=== PATIENT | female | born 1990 | race American Indian/Alaskan Native ===

== ENCOUNTER 2016-08-29 05:13 | Emergency (ER) | payer OTHER ==
[2016-08-29 05:33] VITALS: BP 124/88
== END 2016-08-29 05:25 | disposition left against medical advice (07) ==
LOC: ED 05:13
DX: R10.9 Unspecified abdominal pain (principal); Z53.21 Procedure and treatment not carried out due to patient leaving prior to being seen by health care provider

== ENCOUNTER 2018-01-20 05:12 | Emergency (ER) | payer MEDICAID ==
[2018-01-20 05:21] VITALS: BP 126/91
[2018-01-20] MEDS ORDERED: TYLENOL #3 PO ONE (08:35)
--- NOTE | 2018-01-20 08:35 | Emergency Department Report ---
ED Female HPI - General Chief complaint: Abdominal Pain Stated complaint: ABD PAIN Time Seen by Provider: 01/20/18 08:18 Source: patient Mode of arrival: Ambulatory Limitations: No Limitations - History of Present Illness Initial comments: 27-year-old female past medical history station will diabetes, painful periods currently on control with implant presents with complaint of one week of pelvic cramping and discomfort. Patient states that her last period started on 01/13. States that she has had painful menstrual cramps. Denies dysuria or increased urinary frequency. Denies fevers chills nausea or vomiting. Awake alert and oriented 3. Denies any current vaginal discharge. Is currently sexually active. MD Complaint: pelvic pain - Related Data Previous Rx's Medication Instructions Recorded Last Taken Type HYDROcodone/APAP 5-325 [[place] 1 each PO Q6HR PRN #30 tablet 05/21/17 Unknown Rx 5/325] Ibuprofen [Motrin] 800 mg PO Q8HR PRN #30 tablet 05/21/17 Unknown Rx Naproxen 500 mg PO BID PRN #20 tablet 01/20/18 Unknown Rx Allergies Allergy/AdvReac Type Severity Reaction Status Date / Time lactose Allergy Diarrhea Verified 08/29/16 05:34 tomato Allergy Unknown Verified 08/29/16 05:34 ED Review of Systems ROS: Stated complaint: ABD PAIN Other details as noted in HPI Constitutional: denies: chills, fever Eyes: denies: eye pain, eye discharge, vision change ENT: denies: ear pain, throat pain Respiratory: denies: cough, shortness of breath, wheezing Cardiovascular: denies: chest pain, palpitations Endocrine: no symptoms reported Gastrointestinal: denies: abdominal pain, nausea, diarrhea Genitourinary: abnormal menses (painful). denies: urgency, dysuria, discharge Musculoskeletal: denies: back pain, joint swelling, arthralgia Skin: denies: rash, lesions Neurological: denies: headache, weakness, paresthesias Psychiatric: denies: anxiety, depression Hematological/Lymphatic: denies: easy bleeding, easy bruising ED Past Medical Hx - Past Medical History Previous Medical History?: Yes Hx Hypertension: No Hx Congestive Heart Failure: No Hx Diabetes: Yes (GDMM this ) Hx Deep Vein Thrombosis: No Hx Renal Disease: No Hx Sickle Cell Disease: No Hx Seizures: No Hx Kidney Stones: Yes Hx Asthma: No Hx COPD: No Hx HIV: No Additional medical history: right hydronephrosis - Surgical History Past Surgical History?: Yes Additional Surgical History: wisdom teeth. deviated septum - Social History Smoking Status: Never Smoker Substance Use Type: Alcohol, Marijuana - Medications Home Medications: Home Medications Medication Instructions Recorded Confirmed Last Taken Type HYDROcodone/APAP 5-325 [[place] 1 each PO Q6HR PRN #30 tablet 05/21/17 Unknown Rx 5/325] Ibuprofen [Motrin] 800 mg PO Q8HR PRN #30 tablet 05/21/17 Unknown Rx Naproxen 500 mg PO BID PRN #20 tablet 01/20/18 Unknown Rx ED Physical Exam - General Limitations: No Limitations General appearance: alert, in no apparent distress - Head Head exam: Present: atraumatic, normocephalic - Eye Eye exam: Present: normal appearance, PERRL, EOMI - ENT ENT exam: Present: mucous membranes moist - Neck Neck exam: Present: normal inspection - Respiratory Respiratory exam: Present: normal lung sounds bilaterally. Absent: respiratory distress - Cardiovascular Cardiovascular Exam: Present: regular rate, normal rhythm. Absent: systolic murmur, diastolic murmur, rubs, gallop - GI/Abdominal GI/Abdominal exam: Present: soft (abdomne soft, nontender, nondistended, negative iliospoas, negative murphys sign, negative rovsings, no tenderness at mcburneys point), normal bowel sounds - External exam: Present: normal external exam Speculum exam: Present: normal speculum exam Bi-manual exam: Present: normal bi-manual exam - Extremities Exam Extremities exam: Present: normal inspection - Back Exam Back exam: Present: normal inspection - Neurological Exam Neurological exam: Present: alert, oriented X3, CN II-XII intact, normal gait - Psychiatric Psychiatric exam: Present: normal affect, normal mood - Skin Skin exam: Present: warm, dry, intact, normal color. Absent: rash ED Course Vital Signs 01/20/18 01/20/18 05:14 09:51 Temperature 98.2 F Pulse Rate 85 Respiratory 12 18 Rate Blood Pressure 126/91 O2 Sat by Pulse 98 Oximetry ED Medical Decision Making - Medical Decision Making A/P: Dysmenorrhea 1-UA UNREMARKABLE, URINALYSIS UNREMARKABLE, PATIENT NOT 2 f/u with [facility] 3-naproxen when necessary 4-she states she has a follow-up with [facility] on January 25. It is possible that her intermittent cramps in dysmenorrhea and bleeding secondary to her current implanted control Critical care attestation.: If time is entered above; I have spent that time in minutes in the direct care of this critically ill patient, excluding procedure time. ED Disposition Clinical Impression: Menstrual cramps Disposition: TO HOME OR SELFCARE Is pt being admited?: No Does the pt Need Aspirin: No Condition: Stable Instructions: Menstruation (ED), Dysmenorrhea (ED) Prescriptions: Naproxen 500 mg PO BID PRN #20 tablet PRN Reason: Pain Referrals: [facility] [Provider Group] - 3-5 Days Forms: Work/School Release Form(ED) Time of Disposition: 10:29
[2018-01-20 08:41] LABS: Bilirubin,Urine NEG (Negative); Blood,Urine LG (Negative); Color,Urine Yellow (Yellow); Mucus,Urine 1+ /HPF; Urobilinogen,Urine < 2.0 mg/dL (<2.0)
[2018-01-20 08:43] LABS: RBC,Urine > 182.0 /HPF (0.0-6.0)
[2018-01-20 08:44] LABS: HCG Qualitative,Urine Negative (Negative)
--- NOTE | 2018-01-20 10:24 | Ultrasound Report ---
ULTRASOUND PELVIS DUPLEX DOPPLER COMPLETE ULTRASOUND TRANSVAGINAL HISTORY: Pelvic pain. COMPARISON: None. TECHNIQUE: Transabdominal and transvaginal ultrasound with color doppler interrogation. FINDINGS: Uterus: The uterus is anteverted. The uterus measures 9 x 4 x 6 cm. No uterine fibroids are detected. Trace fluid in an otherwise normal cervix is noted. Endometrium: The endometrial stripe measures 4 mm. No evidence for mass or fluid. Right ovary: 3.9 x 2.0 x 2.8 cm. No focal abnormality. Left ovary: 4.4 x 1.8 x 2.8 cm. No focal abnormality. No pelvic fluid or mass is identified. Spectral waveforms demonstrate arterial flow to both ovaries. IMPRESSION: Unremarkable transabdominal and transvaginal pelvic ultrasounds.
== END 2018-01-20 10:15 | disposition home or self-care (01) ==
LOC: ED 05:12
DX: N94.4 Primary dysmenorrhea (principal); F12.10 Cannabis abuse, uncomplicated; Z79.899 Other long term (current) drug therapy; Z91.018 Allergy to other foods
CPT/HCPCS: 76830; 81001; 81025; 87210; 87591; 93975

== ENCOUNTER 2019-05-28 19:41 | Emergency (ER) | payer MEDICAID ==
[2019-05-28 20:15] VITALS: BP 137/88
--- NOTE | 2019-05-28 20:27 | Emergency Department Report ---
Blank Doc - Documentation Documentation: 29-year-old female that presents with pelvic pain with vaginal discharge. This initial assessment/diagnostic orders/clinical plan/treatment(s) is/are subject to change based on patient's health status, clinical progression and re- assessment by fellow clinical providers in the ED. Further treatment and workup at subsequent clinical providers discretion. Patient/guardians urged not to elope from the ED as their condition may be serious if not clinically assessed and managed. Initial orders include: 1- Patient sent to [facility] for further evaluation and treatment 2- UA 3- pelvic exam
[2019-05-28 20:52] LABS: HCG Qualitative,Urine Negative (Negative)
[2019-05-28 20:52] LABS: Basophils % (Auto) 0.6 % (0.0-1.8); Eosinophils # (Auto) 0.1 K/mm3 (0.0-0.4); Eosinophils % (Auto) 1.3 % (0.0-4.3); Hematocrit 37.7 % (30.3-42.9); Hemoglobin 12.5 gm/dl (10.1-14.3); Lymphocytes # (Auto) 2.1 K/mm3 (1.2-5.4); Lymphocytes % (Auto) 33.2 % (13.4-35.0); Mean Corpuscular HGB Conc 33 % (30-34); Mean Corpuscular Volume 83 fl (79-97); Monocytes # (Auto) 0.4 K/mm3 (0.0-0.8); Monocytes % (Auto) 6.7 % (0.0-7.3); Platelet Count 233 K/mm3 (140-440); Red Blood Count 4.56 M/mm3 (3.65-5.03); Red Cell Distribution Width 18.5 % (13.2-15.2)
[2019-05-28 20:56] LABS: Bacteria,Urine 1+ /HPF (Negative); Bilirubin,Urine NEG (Negative); Blood,Urine NEG (Negative); Color,Urine Straw (Yellow); Mucus,Urine FEW /HPF; Protein,Urine <15 mg/dL mg/dL (Negative); Urobilinogen,Urine < 2.0 mg/dL (<2.0)
[2019-05-28 21:11] LABS: BUN/Creatinine Ratio 20; Blood Urea Nitrogen 12 mg/dL (7-17); Hemolysis Index 17
[2019-05-28] MEDS ORDERED: KETOROLAC 60 MG/2 ML INJ IM ONE (22:37)
--- NOTE | 2019-05-28 23:00 | Emergency Department Report ---
ED General Adult HPI - General Chief complaint: Abdominal Pain Stated complaint: SHAKING Time Seen by Provider: 05/28/19 20:26 Source: patient Mode of arrival: Ambulatory Limitations: No Limitations - History of Present Illness Initial comments: 29-year-old female presents to the hospital with a variety of complaints but seems to think she might be . This evening while walking she felt hot like her vision was going out the patient is going to pass out. It is also reported by triage after she has some shaking episodes which she did not explain to me. She complains of some generalized abdominal pain for several days and white discharge. She is sexually active with one partner and does not use condoms. LMP was 05/04/2019. She complains of nausea without fever, vomiting, diarrhea, or vaginal bleeding. Pt does appear to have some sort of developmental delay. Severity scale (0 -10): 2 - Related Data Previous Rx's Medication Instructions Recorded Last Taken Type HYDROcodone/APAP 5-325 [[place] 1 each PO Q6HR PRN #30 tablet 05/21/17 Unknown Rx 5/325] Naproxen 500 mg PO BID PRN #20 tablet 01/20/18 Unknown Rx Ibuprofen [Motrin 800 MG tab] 800 mg PO Q8HR PRN #20 tablet 05/28/19 Unknown Rx Allergies Allergy/AdvReac Type Severity Reaction Status Date / Time lactose Allergy Diarrhea Verified 08/29/16 05:34 tomato Allergy Unknown Verified 08/29/16 05:34 ED Review of Systems ROS: Stated complaint: SHAKING Other details as noted in HPI Comment: All other systems reviewed and negative ED Past Medical Hx - Past Medical History Previous Medical History?: Yes Hx Hypertension: No Hx Congestive Heart Failure: No Hx Diabetes: No (GDMM this ) Hx Deep Vein Thrombosis: No Hx Renal Disease: No Hx Sickle Cell Disease: No Hx Seizures: No Hx Kidney Stones: Yes Hx Asthma: No Hx COPD: No Hx HIV: No Additional medical history: right hydronephrosis - Surgical History Past Surgical History?: Yes Additional Surgical History: wisdom teeth. deviated septum - Social History Smoking Status: Never Smoker Substance Use Type: Alcohol - Medications Home Medications: Home Medications Medication Instructions Recorded Confirmed Last Taken Type HYDROcodone/APAP 5-325 [[place] 1 each PO Q6HR PRN #30 tablet 05/21/17 Unknown Rx 5/325] Naproxen 500 mg PO BID PRN #20 tablet 01/20/18 Unknown Rx Ibuprofen [Motrin 800 MG tab] 800 mg PO Q8HR PRN #20 tablet 05/28/19 Unknown Rx ED Physical Exam - General Limitations: No Limitations - Other Other exam information: Gen.: No acute distress Head: Atraumatic Eyes: Normal appearance ENT: Moist mucous membranes Neck: Normal appearance, no posterior midline tenderness, no meningismus Chest: Clear to auscultation bilaterally Cardiovascular: Regular rate and rhythm Abdomen: Normal appearance, soft, suprapubic tenderness, no rebound or guarding, normal bowel sounds : No external lesions, white clumpy vaginal discharge, no CMT or adnexal tend erness, no malodorous discharge Back: Normal appearance, nontender Extremity: Full range of motion, normal appearance Neuro: Alert, clear speech, no focal motor or sensory deficit Psychiatric: Appropriate Skin: No rash ED Course Vital Signs 05/28/19 05/28/19 20:14 20:15 Temperature 98.6 F 98.6 F Pulse Rate 100 H 100 H Respiratory 16 16 Rate Blood Pressure 137/88 Blood Pressure 137/88 [Right] O2 Sat by Pulse 100 100 Oximetry ED Medical Decision Making - Lab Data Result diagrams: 05/28/19 20:34 05/28/19 20:34 Lab Results 05/28/19 05/28/19 05/28/19 Range/Units 20:34 20:34 20:41 WBC 6.3 (4.5-11.0) K/mm3 RBC 4.56 (3.65-5.03) M/mm3 Hgb 12.5 (10.1-14.3) gm/dl Hct 37.7 (30.3-42.9) % MCV 83 (79-97) fl MCH 27 L (28-32) pg MCHC 33 (30-34) % RDW 18.5 H (13.2-15.2) % Plt Count 233 (140-440) K/mm3 Lymph % (Auto) 33.2 (13.4-35.0) % [place] % (Auto) 6.7 (0.0-7.3) % Eos % (Auto) 1.3 (0.0-4.3) % Baso % (Auto) 0.6 (0.0-1.8) % Lymph # 2.1 (1.2-5.4) K/mm3 [place] # 0.4 (0.0-0.8) K/mm3 Eos # 0.1 (0.0-0.4) K/mm3 Baso # 0.0 (0.0-0.1) K/mm3 Seg Neutrophils % 58.2 (40.0-70.0) % Seg Neutrophils # 3.7 (1.8-7.7) K/mm3 Sodium 135 L (137-145) mmol/L Potassium 3.6 (3.6-5.0) mmol/L Chloride 102.3 (98-107) mmol/L Carbon Dioxide 21 L (22-30) mmol/L Anion Gap 15 mmol/L BUN 12 (7-17) mg/dL Creatinine 0.6 L (0.7-1.2) mg/dL Estimated GFR > 60 ml/min BUN/Creatinine Ratio 20 % Glucose 98 (65-100) mg/dL Calcium 9.0 (8.4-10.2) mg/dL Urine Color Straw (Yellow) Urine Turbidity Clear (Clear) Urine pH 6.0 (5.0-7.0) Ur Specific [employer] 1.005 (1.003-1.030) Urine Protein <15 mg/dl (Negative) mg/dL Urine Glucose (UA) Neg (Negative) mg/dL Urine Ketones Neg (Negative) mg/dL Urine Blood Neg (Negative) Urine Nitrite Neg (Negative) Ur Reducing Substances Not Reportable Urine Bilirubin Neg (Negative) Urine Ictotest Not Reportable Urine Urobilinogen < 2.0 (<2.0) mg/dL Ur Leukocyte Esterase Neg (Negative) Urine WBC (Auto) 1.0 (0.0-6.0) /HPF Urine RBC (Auto) 1.0 (0.0-6.0) /HPF U Epithel Cells (Auto) < 1.0 (0-13.0) /HPF Urine Bacteria (Auto) 1+ (Negative) /HPF Urine Mucus Few /HPF Urine HCG, Qual Negative (Negative) wet prep neg - EKG Data -: EKG Interpreted by Me EKG shows normal: sinus rhythm, ST-T waves (no STEMI) Rate: normal (91) - Medical Decision Making wet prep neg g/c chlamydia pending labs, urine, ekg unremakable toradol provided for pain pt will be d/ce home with meds and f/u - Differential Diagnosis , anemia, arrhythmia, dehydration, UTI, cervicitis, PID Critical Care Time: No Critical care attestation.: If time is entered above; I have spent that time in minutes in the direct care of this critically ill patient, excluding procedure time. ED Disposition Clinical Impression: Near syncope, Pelvic pain Disposition: TO HOME OR SELFCARE Is pt being admited?: No Does the pt Need Aspirin: No Condition: Stable Instructions: Near Syncope (ED), Acute Abdominal Pain (ED) Additional Instructions: Take the medication as prescribed. Follow-up with your doctor or with the doctor/clinic provided. Return if symptoms worsen as indicated by your discharge instructions. Your gonorrhea and chlamydia tests were sent. These take about 2-3 days to result. You may obtain results by going to medical records with photo ID. Your doctor may also requested results from his or her office after you provide written permission. Prescriptions: Ibuprofen [Motrin 800 MG tab] 800 mg PO Q8HR PRN #20 tablet PRN Reason: Pain Referrals: PRIMARY MD MICHAEL [Primary Care Provider] - 3-5 Days [facility] [Provider Group] - 3-5 Days ROSALVA SORIANO MD [Staff Physician] - 3-5 Days MEMO MARTINEZ MD [Staff Physician] - 3-5 Days Time of Disposition: 23:09
== END 2019-05-28 23:22 | disposition home or self-care (01) ==
LOC: ED 19:41
DX: R55 Syncope and collapse (principal); R10.2 Pelvic and perineal pain; N89.8 Other specified noninflammatory disorders of vagina; R25.1 Tremor, unspecified; Z87.442 Personal history of urinary calculi; Z91.011 Allergy to milk products; Z91.018 Allergy to other foods
CPT/HCPCS: 36415; 80048; 81001; 81025; 85025; 87210; 87591; 93005; 93010; 96372; 99284; J1885

== ENCOUNTER 2019-06-16 10:44 | Emergency (ER) | payer MEDICAID ==
--- NOTE | 2019-06-16 11:03 | Emergency Department Report ---
ED Psych HPI - General Chief Complaint: Psych Stated Complaint: MENTAL EVAL Time Seen by Provider: 06/16/19 11:02 Source: patient Mode of arrival: Ambulatory - History of Present Illness Initial Comments: 29-year-old -[place] female patient without significant past medical history presents to the ED with complaints of visual and auditory hallucinations racing thoughts for years, but worsening 2 weeks. She denies any diagnosis of schizophrenia, bipolar disorder, or other psych diagnoses. 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 She admits to suicidal thoughts for the past couple of weeks also with a plan to take pills. She broderick es any current homicidal thoughts. She states she has had worsening of these symptoms due to stressors in her life -: year(s) Associated Psychiatric Symptoms: suicidal ideation, homicidal ideation, visual hallucinations - Related Data Previous Rx's Medication Instructions Recorded Last Taken Type HYDROcodone/APAP 5-325 [[place] 1 each PO Q6HR PRN #30 tablet 05/21/17 Unknown Rx 5/325] Naproxen 500 mg PO BID PRN #20 tablet 01/20/18 Unknown Rx Ibuprofen [Motrin 800 MG tab] 800 mg PO Q8HR PRN #20 tablet 05/28/19 Unknown Rx Allergies Allergy/AdvReac Type Severity Reaction Status Date / Time lactose Allergy Diarrhea Verified 08/29/16 05:34 tomato Allergy Unknown Verified 08/29/16 05:34 ED Review of Systems ROS: Stated complaint: MENTAL EVAL Other details as noted in HPI Comment: All other systems reviewed and negative Eyes: denies: vision change Respiratory: denies: cough, shortness of breath Cardiovascular: denies: chest pain, palpitations, dyspnea on exertion Neurological: denies: headache, weakness, numbness, paresthesias, confusion, abnormal gait Psychiatric: auditory hallucinations, visual hallucinations, suicidal thoughts ED Past Medical Hx - Past Medical History Previous Medical History?: Yes Hx Hypertension: No Hx Congestive Heart Failure: No Hx Diabetes: (GDMM this ) Hx Deep Vein Thrombosis: No Hx Renal Disease: No Hx Sickle Cell Disease: No Hx Seizures: No Hx Kidney Stones: Yes Hx Asthma: No Hx COPD: No Hx HIV: No Additional medical history: right hydronephrosis - Surgical History Past Surgical History?: Yes Additional Surgical History: wisdom teeth. deviated septum - Social History Smoking Status: Never Smoker Substance Use Type: None - Medications Home Medications: Home Medications Medication Instructions Recorded Confirmed Last Taken Type HYDROcodone/APAP 5-325 [[place] 1 each PO Q6HR PRN #30 tablet 05/21/17 06/16/19 Unknown Rx 5/325] Naproxen 500 mg PO BID PRN #20 tablet 01/20/18 06/16/19 Unknown Rx Ibuprofen [Motrin 800 MG tab] 800 mg PO Q8HR PRN #20 tablet 05/28/19 06/16/19 Unknown Rx ED Physical Exam - General Limitations: No Limitations General appearance: alert, in no apparent distress - Head Head exam: Present: atraumatic, normocephalic - Eye Eye exam: Present: normal appearance, PERRL - Neck Neck exam: Present: full ROM - Respiratory Respiratory exam: Present: normal lung sounds bilaterally. Absent: respiratory distress, wheezes, rales - Cardiovascular Cardiovascular Exam: Present: regular rate, normal rhythm, normal heart sounds. Absent: systolic murmur, diastolic murmur, rubs, gallop - GI/Abdominal GI/Abdominal exam: Absent: guarding - Neurological Exam Neurological exam: Present: alert, oriented X3 - Psychiatric Psychiatric exam: Present: normal affect, suicidal ideation - Skin Skin exam: Present: warm, dry, intact, normal color. Absent: rash ED Course Vital Signs 06/16/19 06/16/19 06/16/19 10:54 11:50 13:00 Temperature 97.7 F 97.5 F L Pulse Rate 95 H 101 H Respiratory 18 14 20 Rate Blood Pressure 128/82 Blood Pressure 122/74 [Left] O2 Sat by Pulse 100 98 Oximetry 06/16/19 06/17/19 06/17/19 20:15 01:00 07:37 Temperature 97.6 F 97.2 F L 98.0 F Pulse Rate 93 H 80 88 Respiratory 18 18 18 Rate Blood Pressure Blood Pressure 108/72 133/99 118/79 [Left] O2 Sat by Pulse 97 100 100 Oximetry ED Medical Decision Making - Lab Data Result diagrams: 06/16/19 11:40 06/16/19 11:19 Lab Results 06/16/19 06/16/19 06/16/19 Range/Units 11:19 11:30 11:30 WBC (4.5-11.0) K/mm3 RBC (3.65-5.03) M/mm3 Hgb (10.1-14.3) gm/dl Hct (30.3-42.9) % MCV (79-97) fl MCH (28-32) pg MCHC (30-34) % RDW (13.2-15.2) % Plt Count (140-440) K/mm3 Lymph % (Auto) (13.4-35.0) % [place] % (Auto) (0.0-7.3) % Eos % (Auto) (0.0-4.3) % Baso % (Auto) (0.0-1.8) % Lymph # (1.2-5.4) K/mm3 [place] # (0.0-0.8) K/mm3 Eos # (0.0-0.4) K/mm3 Baso # (0.0-0.1) K/mm3 Seg Neutrophils % (40.0-70.0) % Seg Neutrophils # (1.8-7.7) K/mm3 Sodium 140 (137-145) mmol/L Potassium 4.2 (3.6-5.0) mmol/L Chloride 104.4 (98-107) mmol/L Carbon Dioxide 19 L (22-30) mmol/L Anion Gap 21 mmol/L BUN 10 (7-17) mg/dL Creatinine 0.7 (0.7-1.2) mg/dL Estimated GFR > 60 ml/min BUN/Creatinine Ratio 14 % Glucose 149 H (65-100) mg/dL Calcium 8.9 (8.4-10.2) mg/dL HCG, Qual (Negative) Urine Color Yellow (Yellow) Urine Turbidity Clear (Clear) Urine pH 7.0 (5.0-7.0) Ur Specific [place] 1.005 (1.003-1.030) Urine Protein <15 mg/dl (Negative) mg/dL Urine Glucose (UA) 1+ (Negative) mg/dL Urine Ketones Negative (Negative) mg/dL Urine Blood Negative (Negative) Urine Nitrite Negative (Negative) Urine Bilirubin Negative (Negative) Urine Urobilinogen < 2.0 (<2.0) mg/dL Ur Leukocyte Esterase Negative (Negative) Urine WBC (Auto) < 1.0 (0.0-6.0) /HPF Urine RBC (Auto) 1.0 (0.0-6.0) /HPF U Epithel Cells (Auto) 2.0 (0-13.0) /HPF Salicylates (2.8-20.0) mg/dL Urine Opiates Screen Presumptive negative Urine Methadone Screen Presumptive negative Acetaminophen (10.0-30.0) ug/mL Ur Barbiturates Screen Presumptive negative Ur Phencyclidine Scrn Presumptive negative Ur Amphetamines Screen Presumptive negative U Benzodiazepines Scrn Presumptive negative Urine Cocaine Screen Presumptive negative U Marijuana (THC) Screen Presumptive negative Drugs of Abuse Note Disclamer Plasma/Serum Alcohol (0-0.07) % 06/16/19 06/16/19 06/16/19 Range/Units 11:32 11:40 11:40 WBC (4.5-11.0) K/mm3 RBC (3.65-5.03) M/mm3 Hgb (10.1-14.3) gm/dl Hct (30.3-42.9) % MCV (79-97) fl MCH (28-32) pg MCHC (30-34) % RDW (13.2-15.2) % Plt Count (140-440) K/mm3 Lymph % (Auto) (13.4-35.0) % [place] % (Auto) (0.0-7.3) % Eos % (Auto) (0.0-4.3) % Baso % (Auto) (0.0-1.8) % Lymph # (1.2-5.4) K/mm3 [place] # (0.0-0.8) K/mm3 Eos # (0.0-0.4) K/mm3 Baso # (0.0-0.1) K/mm3 Seg Neutrophils % (40.0-70.0) % Seg Neutrophils # (1.8-7.7) K/mm3 Sodium (137-145) mmol/L Potassium (3.6-5.0) mmol/L Chloride (98-107) mmol/L Carbon Dioxide (22-30) mmol/L Anion Gap mmol/L BUN (7-17) mg/dL Creatinine (0.7-1.2) mg/dL Estimated GFR ml/min BUN/Creatinine Ratio % Glucose (65-100) mg/dL Calcium (8.4-10.2) mg/dL HCG, Qual (Negative) Urine Color (Yellow) Urine Turbidity (Clear) Urine pH (5.0-7.0) Ur Specific [place] (1.003-1.030) Urine Protein (Negative) mg/dL Urine Glucose (UA) (Negative) mg/dL Urine Ketones (Negative) mg/dL Urine Blood (Negative) Urine Nitrite (Negative) Urine Bilirubin (Negative) Urine Urobilinogen (<2.0) mg/dL Ur Leukocyte Esterase (Negative) Urine WBC (Auto) (0.0-6.0) /HPF Urine RBC (Auto) (0.0-6.0) /HPF U Epithel Cells (Auto) (0-13.0) /HPF Salicylates < 0.3 L (2.8-20.0) mg/dL Urine Opiates Screen Urine Methadone Screen Acetaminophen < 5.0 L (10.0-30.0) ug/mL Ur Barbiturates Screen Ur Phencyclidine Scrn Ur Amphetamines Screen U Benzodiazepines Scrn Urine Cocaine Screen U Marijuana (THC) Screen Drugs of Abuse Note Plasma/Serum Alcohol < 0.01 (0-0.07) % 06/16/19 06/16/19 Range/Units 11:40 Unknown WBC 5.2 (4.5-11.0) K/mm3 RBC 4.17 (3.65-5.03) M/mm3 Hgb 11.1 (10.1-14.3) gm/dl Hct 34.4 (30.3-42.9) % MCV 83 (79-97) fl MCH 27 L (28-32) pg MCHC 32 (30-34) % RDW 16.5 H (13.2-15.2) % Plt Count 232 (140-440) K/mm3 Lymph % (Auto) 34.4 (13.4-35.0) % [place] % (Auto) 6.7 (0.0-7.3) % Eos % (Auto) 3.5 (0.0-4.3) % Baso % (Auto) 0.7 (0.0-1.8) % Lymph # 1.8 (1.2-5.4) K/mm3 [place] # 0.3 (0.0-0.8) K/mm3 Eos # 0.2 (0.0-0.4) K/mm3 Baso # 0.0 (0.0-0.1) K/mm3 Seg Neutrophils % 54.7 (40.0-70.0) % Seg Neutrophils # 2.9 (1.8-7.7) K/mm3 Sodium (137-145) mmol/L Potassium (3.6-5.0) mmol/L Chloride (98-107) mmol/L Carbon Dioxide (22-30) mmol/L Anion Gap mmol/L BUN (7-17) mg/dL Creatinine (0.7-1.2) mg/dL Estimated GFR ml/min BUN/Creatinine Ratio % Glucose (65-100) mg/dL Calcium (8.4-10.2) mg/dL HCG, Qual Negative (Negative) Urine Color (Yellow) Urine Turbidity (Clear) Urine pH (5.0-7.0) Ur Specific [place] (1.003-1.030) Urine Protein (Negative) mg/dL Urine Glucose (UA) (Negative) mg/dL Urine Ketones (Negative) mg/dL Urine Blood (Negative) Urine Nitrite (Negative) Urine Bilirubin (Negative) Urine Urobilinogen (<2.0) mg/dL Ur Leukocyte Esterase (Negative) Urine WBC (Auto) (0.0-6.0) /HPF Urine RBC (Auto) (0.0-6.0) /HPF U Epithel Cells (Auto) (0-13.0) /HPF Salicylates (2.8-20.0) mg/dL Urine Opiates Screen Urine Methadone Screen Acetaminophen (10.0-30.0) ug/mL Ur Barbiturates Screen Ur Phencyclidine Scrn Ur Amphetamines Screen U Benzodiazepines Scrn Urine Cocaine Screen U Marijuana (THC) Screen Drugs of Abuse Note Plasma/Serum Alcohol (0-0.07) % - Medical Decision Making 29-year-old female patient here with visual and auditory hallucinations and suicidal ideations with plan to overdose on pills. Vitals have remained stable. No significant abnormalities noted in labs. Patient is medically clear for transport to mental health facility. Critical care attestation.: If time is entered above; I have spent that time in minutes in the direct care of this critically ill patient, excluding procedure time. ED Disposition Clinical Impression: Suicidal ideations Disposition: [id number]/TX-65 PSY HOSP/PSY UNIT Is pt being admited?: No Condition: Stable
[2019-06-16 11:44] LABS: Color,Urine Yellow (Yellow)
[2019-06-16 11:45] LABS: Bilirubin,Urine Negative (Negative); Blood,Urine Negative (Negative); Protein,Urine <15 mg/dL mg/dL (Negative); Urobilinogen,Urine < 2.0 mg/dL (<2.0)
[2019-06-16 11:46] LABS: WBC,Urine < 1.0 /HPF (0.0-6.0)
[2019-06-16 11:54] LABS: Amphetamine Screen,Urine PRESUMPTIVE NEGATIVE; Benzodiazepines Screen,Urine PRESUMPTIVE NEGATIVE; Cannabinoid Screen,Urine PRESUMPTIVE NEGATIVE; Cocaine Screen,Urine PRESUMPTIVE NEGATIVE; Methadone Screen,Urine PRESUMPTIVE NEGATIVE; Opiate Screen,Urine PRESUMPTIVE NEGATIVE
[2019-06-16 12:06] LABS: Basophils % (Auto) 0.7 % (0.0-1.8); Eosinophils # (Auto) 0.2 K/mm3 (0.0-0.4); Eosinophils % (Auto) 3.5 % (0.0-4.3); Hematocrit 34.4 % (30.3-42.9); Hemoglobin 11.1 gm/dl (10.1-14.3); Lymphocytes # (Auto) 1.8 K/mm3 (1.2-5.4); Lymphocytes % (Auto) 34.4 % (13.4-35.0); Mean Corpuscular HGB Conc 32 % (30-34); Mean Corpuscular Volume 83 fl (79-97); Monocytes # (Auto) 0.3 K/mm3 (0.0-0.8); Monocytes % (Auto) 6.7 % (0.0-7.3); Platelet Count 232 K/mm3 (140-440); Red Blood Count 4.17 M/mm3 (3.65-5.03); Red Cell Distribution Width 16.5 % (13.2-15.2)
[2019-06-16 12:40] LABS: BUN/Creatinine Ratio 14; Blood Urea Nitrogen 10 mg/dL (7-17); Calcium 8.9 mg/dL (8.4-10.2); Hemolysis Index 53
[2019-06-16] MEDS ORDERED: TYLENOL PO ONE (17:15)
--- NOTE | 2019-06-16 20:24 | Cat Scan Report ---
CT head/brain wo con INDICATION: Acute psychosis with hallucinations. TECHNIQUE: Routine CT head without contrast. All CT scans at this location are performed using CT dos e reduction for ALARA by means of automated exposure control. COMPARISON: None. FINDINGS: BRAIN / INTRACRANIAL CONTENTS: No acute hemorrhage, mass effect, midline shift, or hydrocephalus. No appreciable acute large territorial or lacunar infarct. No chronic infarct or focal atrophy. Normal b rain volume and ventricular/sulcal size for age. ORBITS: No significant abnormality of visualized orbits. SINUSES / MASTOIDS: No significant abnormality of visualized sinuses and mastoid air cells. ADDITIONAL FINDINGS: None. IMPRESSION: 1. No acute intracranial abnormality. Signer Name: Wilfredo Gaines MD Signed: 06/16/2019 8:20 PM Workstation Name: [id number]
[2019-06-17] MEDS ORDERED: TYLENOL ONE (02:39)
[2019-06-17] MEDS ORDERED: TYLENOL PO ONE (02:50)
[2019-06-17 07:41] VITALS: BP 118/79
== END 2019-06-17 12:45 ==
LOC: ED 10:44 → EEVIPCON 10:44 → ED 06-17 12:45
DX: F32.9 Major depressive disorder, single episode, unspecified (principal); R44.0 Auditory hallucinations; R44.1 Visual hallucinations; Z91.011 Allergy to milk products; Z91.018 Allergy to other foods; Z79.899 Other long term (current) drug therapy; Z87.442 Personal history of urinary calculi
CPT/HCPCS: 36415; 70450; 80048; 80307; 80320; 81001; 84703; 85025; 99285; G0480

== ENCOUNTER 2019-06-29 04:06 | Emergency (ER) | payer MEDICAID ==
[2019-06-29] MEDS ORDERED: LORazepam 2 MG/ML VIAL IM ONE (05:40)
--- NOTE | 2019-06-29 05:46 | Emergency Department Report ---
ED Psych HPI - General Chief Complaint: Psych Stated Complaint: ALLERGIC REACTION TO PYSCH MEDS Time Seen by Provider: 06/29/19 05:41 Source: patient Mode of arrival: Ambulatory - History of Present Illness Initial Comments: pt is a 89 y/o aaf with hx of schizophrenia on risperadol last dose 06/23/2019 who presents for depressor and anxiety, states anxious, raciing, denies SI or HI, pt has not seen pyschiatrist , Last seen at [facility] 1 week ago. Denies Substance. MD Complaint: feels depressed Onset/Timin -: days(s) Associated Psychiatric Symptoms: depression, racing thoughts History of same: Yes Quality: intermittent Improves With: medication Worsens With: none Context: not taking psychiatric Associated Symptoms: insomnia Treatments Prior to Arrival: none - Related Data Home Medications Medication Instructions Recorded Confirmed Last Taken ARIPiprazole 5 mg PO QDAY 07/08/19 07/08/19 Unknown Divalproex ER [DepaKOTE ER] 500 mg PO BID 07/08/19 07/08/19 Unknown Previous Rx's Medication Instructions Recorded Last Taken Type Hyoscyamine Subl [Levsin Sl 0.125 0.125 mg SL Q6HR PRN #20 tab 07/08/19 Unknown Rx TAB] Ondansetron [Zofran ODT TAB] 8 mg PO Q12HR #14 tab.rapdis 07/08/19 Unknown Rx Allergies Allergy/AdvReac Type Severity Reaction Status Date / Time lactose Allergy Diarrhea Verified 08/29/16 05:34 risperidone [From Risperdal] Allergy Itching Verified 07/08/19 06:16 tomato Allergy Unknown Verified 08/29/16 05:34 ED Review of Systems ROS: Stated complaint: ALLERGIC REACTION TO PYSCH MEDS Other details as noted in HPI Constitutional: denies: chills, fever Eyes: denies: eye pain, eye discharge, vision change ENT: denies: ear pain, throat pain Respiratory: denies: cough, shortness of breath, wheezing Cardiovascular: denies: chest pain, palpitations Endocrine: no symptoms reported Gastrointestinal: denies: abdominal pain, nausea, diarrhea Genitourinary: denies: urgency, dysuria, discharge Musculoskeletal: denies: back pain, joint swelling, arthralgia Skin: denies: rash, lesions Neurological: denies: headache, weakness, paresthesias Psychiatric: anxiety, depression. denies: auditory hallucinations, visual hallucinations, homicidal thoughts, suicidal thoughts Hematological/Lymphatic: denies: easy bleeding, easy bruising ED Past Medical Hx - Past Medical History Previous Medical History?: Yes Hx Hypertension: No Hx Congestive Heart Failure: No Hx Diabetes: (GDMM this ) Hx Deep Vein Thrombosis: No Hx Renal Disease: No Hx Sickle Cell Disease: No Hx Seizures: No Hx Kidney Stones: Yes Hx Asthma: No Hx COPD: No Hx HIV: No Additional medical history: right hydronephrosis - Surgical History Additional Surgical History: wisdom teeth. deviated septum - Social History Smoking Status: Current Every Day Smoker Substance Use Type: Marijuana - Medications Home Medications: Home Medications Medication Instructions Recorded Confirmed Last Taken Type ARIPiprazole 5 mg PO QDAY 07/08/19 07/08/19 Unknown History Divalproex ER [DepaKOTE ER] 500 mg PO BID 07/08/19 07/08/19 Unknown History Hyoscyamine Subl [Levsin Sl 0.125 0.125 mg SL Q6HR PRN #20 tab 07/08/19 Unknown Rx TAB] Ondansetron [Zofran ODT TAB] 8 mg PO Q12HR #14 tab.rapdis 07/08/19 Unknown Rx ED Physical Exam - General Limitations: No Limitations General appearance: alert, in no apparent distress - Head Head exam: Present: atraumatic, normocephalic - Eye Eye exam: Present: normal appearance, PERRL, EOMI Pupils: Present: normal accommodation - ENT ENT exam: Present: mucous membranes moist - Neck Neck exam: Present: normal inspection, full ROM. Absent: tenderness - Respiratory Respiratory exam: Present: normal lung sounds bilaterally. Absent: respiratory distress, wheezes, stridor, chest wall tenderness - Cardiovascular Cardiovascular Exam: Present: regular rate, normal rhythm, normal heart sounds. Absent: systolic murmur, diastolic murmur, rubs, gallop - GI/Abdominal GI/Abdominal exam: Present: soft, normal bowel sounds. Absent: distended, tenderness, bruit, hernia - Rectal Rectal exam: Present: deferred - Extremities Exam Extremities exam: Present: normal inspection, full ROM. Absent: tenderness - Back Exam Back exam: Present: normal inspection, full ROM. Absent: tenderness, rash noted - Neurological Exam Neurological exam: Present: alert, oriented X3, CN II-XII intact, normal gait - Psychiatric Psychiatric exam: Present: depressed, anxious. Absent: homicidal ideation, suicidal ideation - Skin Skin exam: Present: warm, dry, intact, normal color. Absent: rash ED Course Vital Signs 06/29/19 06/29/19 06/29/19 04:13 09:05 17:00 Temperature 98.2 F 98 F 98.8 F Pulse Rate 107 H 110 H 117 H Respiratory 18 20 20 Rate Blood Pressure 113/84 Blood Pressure 102/58 107/48 [102/58] O2 Sat by Pulse 98 100 99 Oximetry 06/29/19 06/30/19 06/30/19 20:05 07:00 15:39 Temperature 98.3 F 98.2 F 98.7 F Pulse Rate 97 H 99 H 99 H Respiratory 18 18 18 Rate Blood Pressure Blood Pressure 100/52 116/70 110/62 [102/58] O2 Sat by Pulse 98 98 100 Oximetry 06/30/19 07/01/19 07/01/19 23:14 07:00 13:00 Temperature 98.5 F 98.8 F 97.5 F L Pulse Rate 90 98 H 102 H Respiratory 18 18 20 Rate Blood Pressure Blood Pressure 118/94 113/80 145/86 [102/58] O2 Sat by Pulse 99 99 100 Oximetry 07/01/19 07/01/19 07/02/19 19:55 20:58 01:00 Temperature 98.3 F 98.4 F Pulse Rate 107 H 85 Respiratory 18 18 18 Rate Blood Pressure Blood Pressure 133/90 108/70 [102/58] O2 Sat by Pulse 98 99 100 Oximetry 07/02/19 07/02/19 07/02/19 07:00 15:14 20:07 Temperature 98.1 F 98.6 F 98.0 F Pulse Rate 101 H 96 H 98 H Respiratory 18 20 20 Rate Blood Pressure Blood Pressure 130/78 122/78 118/64 [102/58] O2 Sat by Pulse 100 99 Oximetry 07/03/19 07/03/19 01:00 09:08 Temperature 98.1 F 98.5 F Pulse Rate 94 H 98 H Respiratory 18 18 Rate Blood Pressure Blood Pressure 113/65 111/74 [102/58] O2 Sat by Pulse 98 100 Oximetry - Reevaluation(s) Reevaluation #1: 06/29/19 05:[address], medical clearance labs ordered, Ativan, Risperidol orderd as previously prescribed, pt is anxious, racing thought no si, no hi, awaiting psych eval. ED Medical Decision Making - Lab Data Result diagrams: 06/29/19 05:39 06/29/19 05:39 Critical care attestation.: If time is entered above; I have spent that time in minutes in the direct care of this critically ill patient, excluding procedure time. ED Disposition Clinical Impression: Depression Qualifiers: Depression Type: unspecified Qualified Code(s): F32.9 - Major depressive disorder, single episode, unspecified Disposition: DC/TX-65 PSY HOSP/PSY UNIT Is pt being admited?: No Does the pt Need Aspirin: No Condition: Stable Referrals: PRIMARY CARE, [Primary Care Provider] - 3-5 Days
[2019-06-29 07:10] LABS: BUN/Creatinine Ratio 15; Blood Urea Nitrogen 9 mg/dL (7-17); Hemolysis Index 12
[2019-06-29 07:23] LABS: Hematocrit 40.1 % (30.3-42.9); Hemoglobin 12.9 gm/dl (10.1-14.3); Mean Corpuscular HGB Conc 32 % (30-34); Mean Corpuscular Volume 82 fl (79-97); Platelet Count 237 K/mm3 (140-440)
[2019-06-29 08:07] LABS: HCG Qualitative,Urine Negative (Negative)
[2019-06-29 08:10] LABS: Bilirubin,Urine NEG (Negative); Blood,Urine NEG (Negative); Color,Urine Yellow (Yellow); Hyaline Casts,Urine 1 /LPF; Mucus,Urine FEW /HPF; Protein,Urine <15 mg/dL mg/dL (Negative); Urobilinogen,Urine < 2.0 mg/dL (<2.0); WBC,Urine < 1.0 /HPF (0.0-6.0)
[2019-06-29 08:13] LABS: Amphetamine Screen,Urine PRESUMPTIVE NEGATIVE; Benzodiazepines Screen,Urine PRESUMPTIVE NEGATIVE; Cannabinoid Screen,Urine PRESUMPTIVE NEGATIVE; Cocaine Screen,Urine PRESUMPTIVE NEGATIVE; Methadone Screen,Urine PRESUMPTIVE NEGATIVE; Opiate Screen,Urine PRESUMPTIVE NEGATIVE
[2019-06-29] MEDS: risperiDONE 1 MG TAB PO SCH ×2 (11:48→21:49)
--- NOTE | 2019-06-30 09:41 | Consultation ---
History of Present Illness - Reason for Consult Consult date: 06/30/19 Reason for consult: Mental Health Evaluation Requesting physician: MARVA EVANS - Chief Complaint Chief complaint: "My dad is a " - History of Present Psychiatric Illness 29 y.o. AA female who presented to the ER for psy medication refill. Today the patient was cooperative, but hyper verbal during the assessment. She answer most questions stating that her dad is a . She had to be redirected because she went on a tangent about irrelevant information that wasn't asked of her. She did state that she haven't slept in 2 days and acknowledged a recent mental health hospitalization. She denies SI/HI's and AVH's. Overall, the patient's insight is poor. Medications and Allergies Allergies Allergy/AdvReac Type Severity Reaction Status Date / Time lactose Allergy Diarrhea Verified 08/29/16 05:34 tomato Allergy Unknown Verified 08/29/16 05:34 Home Medications Medication Instructions Recorded Confirmed Last Taken Type HYDROcodone/APAP 5-325 [[place] 1 each PO Q6HR PRN #30 tablet 05/21/17 06/30/19 Unknown Rx 5/325] Naproxen 500 mg PO BID PRN #20 tablet 01/20/18 06/30/19 Unknown Rx Ibuprofen [Motrin 800 MG tab] 800 mg PO Q8HR PRN #20 tablet 05/28/19 06/30/19 Unknown Rx Active Meds: Active Medications Melatonin (Melatonin) 5 mg PO QHS PRN PRN Reason: Sleep Risperidone (Risperdal) 1 mg PO HS DIMITRIS Past psychiatric history - Past Medical History Past Medical History: other (Perg x 1) Past Surgical History: No surgical history - past Psychiatric treatment and history psychiatric treatment history: Inpatient psy services at [facility] recently. Denies a fam psy hx. - Social History Social history: lives with family Mental Status Exam - Vital signs Last Vital Signs Temp 98.2 F 06/30/19 07:00 Pulse 99 H 06/30/19 07:00 Resp 18 06/30/19 07:00 BP 116/70 06/30/19 07:00 Pulse Ox 98 06/30/19 07:00 - Exam Narrative exam: MSE: Appearance: cooperative Behavior: regular eye contact Speech: hyper verbal Mood:: euthymic Affect: congruent to mood Thought Process: tangential, loose associations Thought Content: denies SI/HI's and AVH's, delusional Motor Activity: ambulatory Cognition: A/O x 3 Insight: poor Judgment: poor Results Result Diagrams: 06/29/19 05:39 06/29/19 05:39 All other labs normal. Assessment and Plan Assessment and plan: Impression: Unspecified Mood DO with psy features. The patient is manic. Today the patient was cooperative, but hyper verbal during the assessment. UDS was negative. DDx: Bipolar DO with psychosis, SCAD, Schizophrenia Recommendation/Plan: Continue 1013 and modify Risperdal to 1 mg PO HS for mood/psychosis. Start Depakote 500 mg PO BID for mood and Melatonin 5 mg PO HS PRN for sleep. Baseline A1c/Lipid Panel ordered for the AM. Dispo: The patient was referred to inpatient psy services. Staffed with Dr Margarita Yeung.
[2019-06-30 11:36] LABS: Alanine Aminotransferase 24 units/L (7-56)
[2019-06-30] MEDS ORDERED: ZIPRASIDONE MESYLATE 20 MG VIAL IM ONE (18:19)
[2019-06-30] MEDS ORDERED: WATER FOR INJ Sterile (PF) 10 ML ONE (18:23)
[2019-06-30] MEDS ORDERED: risperiDONE 0.25 MG TAB PO SCH (22:00)
[2019-06-30] MEDS: risperiDONE 1 MG TAB PO SCH (22:30)
[2019-06-30] MEDS: MELATONIN 5 MG TAB PO PRN (22:30)
[2019-07-01 07:39] LABS: Chol/HDL Ratio 3.14 %
[2019-07-01] MEDS: DIVALPROEX ER 500 MG TAB PO SCH ×2 (11:00→23:39)
--- NOTE | 2019-07-01 11:16 | Progress Note ---
Subjective - Reason for Consult Consult date: 07/01/19 Reason for consult: Psychiatric Follow-up Evaluation - Chief Complaint Chief complaint: "Better than yesterday" Patient is a 29 y.o. AA female who presented to the ER for psychiatric medication refill. Today the patient is cooperative but anxious during the assessment. She presents with hyperverbal speech during the assessment. 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 Last months when I came on my period I had a lot of different emotions. I've should've come on my period , June 29, but I haven't yet." She reports poor sleep and good appetite." She presents with angelic. Both grandiose delusions/ tangential thought process is noted. She denies SI/HI's and A/VH's. Mental Status Exam - Vital signs Last Vital Signs Temp 98.8 F 07/01/19 07:00 Pulse 98 H 07/01/19 07:00 Resp 18 07/01/19 07:00 BP 113/80 07/01/19 07:00 Pulse Ox 99 07/01/19 07:00 - Exam Narrative exam: Mental Status Exam Appearance: cooperative Behavior: regular eye contact Speech: hyper verbal Mood:: euthymic Affect: congruent to mood Thought Process: tangential, loose associations Thought Content: denies SI/HI's and AVH's; grandiose delusions Motor Activity: ambulatory Cognition: A/O x 3 Insight: poor Judgment: poor Assessment and Plan Impression: Unspecified Mood DO with psy features. Manic symptoms are exhibited. Today the patient is cooperative but anxious during the assessment. UDS was negative. DDx: Bipolar DO with psychosis, SCAD, Schizophrenia Recommendation/Plan: 1. Continue 1013. 2. Continue Risperdal to 1 mg PO HS for mood/psychosis, Depakote 500 mg PO BID for mood, Melatonin 5 mg PO HS PRN for sleep. Baseline A1c/Lipid Panel ordered for the AM. 3. Start Trazodone 50mg po QHS insomnia. Discussed possible side effects. Patient verbalizes understanding. Disposition: The patient was referred to inpatient psychiatric services. Will staff with Dr. Margarita Yeung.
[2019-07-01] MEDS: risperiDONE 1 MG TAB PO SCH (23:39)
[2019-07-01] MEDS: traZODone 50 MG TAB PO SCH (23:39)
[2019-07-02] MEDS: DIVALPROEX ER 500 MG TAB PO SCH ×2 (10:49→22:05)
--- NOTE | 2019-07-02 12:01 | Progress Note ---
Subjective - Reason for Consult Consult date: 07/02/19 Reason for consult: Psychiatric Follow-up Evaluation - Chief Complaint Chief complaint: "I don't feel good" Patient is a 29 y.o. AA female who presented to the ER for psychiatric medication refill. Today the patient is cooperative but anxious during the assessment. She presents with hyperverbal speech during the assessment. She continues to be somatically focused. " I still haven't had my period. I was suppose to get my period on . The put me on Ritalin to regulate my emotions." Thought process continues to be tangent with flight of ideas. She reports improved sleep and appetite. She presents with manic symptoms. Grandiose delusions are less. She denies SI/HI's and A/VH's. Mental Status Exam - Vital signs Last Vital Signs Temp 98.1 F 07/02/19 07:00 Pulse 101 H 07/02/19 07:00 Resp 18 07/02/19 07:00 BP 130/78 07/02/19 07:00 Pulse Ox 100 07/02/19 01:00 - Exam Narrative exam: Mental Status Exam Appearance: cooperative, anxious Behavior: regular eye contact Speech: hyper verbal Mood: "I feel amazing. I feel great."- euphoric Affect: congruent to mood Thought Process: tangential, flight of ideas Thought Content: denies SI/HI's and AVH's; grandiose delusions Motor Activity: ambulatory Cognition: A/O x 3 Insight: variable Judgment: variable Assessment and Plan Impression: Unspecified Mood DO with psy features. She continues to exhibit manic symptoms. Today the patient is cooperative but anxious during the assessment. UDS was negative. DDx: Bipolar DO with psychosis, SCAD, Schizophrenia Recommendation/Plan: 1. Continue 1013. 2. Increase Risperdal to 2 mg PO HS for mood/psychosis. 3. Continue Depakote 500 mg PO BID for mood, Melatonin 5 mg PO HS PRN for sleep, Trazodone 50mg po QHS insomnia. Discussed possible side effects. Patient verbalizes understanding. Disposition: The patient was referred to inpatient psychiatric services. Will re-evaluate 1013 on 07/03/19. Will staff with Dr. Margarita Yeung.
[2019-07-02] MEDS: MELATONIN 5 MG TAB PO PRN (21:33)
[2019-07-02] MEDS: traZODone 50 MG TAB PO SCH (21:33)
[2019-07-02] MEDS ORDERED: risperiDONE 1 MG TAB PO SCH (22:00)
[2019-07-03 09:09] VITALS: BP 111/74
--- NOTE | 2019-07-03 09:47 | Progress Note ---
Subjective - Reason for Consult Consult date: 07/03/19 Reason for consult: Psychiatry Follow-up - Chief Complaint Chief complaint: "I don't feel good" Patient is a 29 y.o. AA female who presented to the ER for psychiatric medication refill. Today the patient is cooperative, but still hyper verbal during the assessment. She continue have loose associations throughout he interview. She need constant redirection to keep her on topic. She denies SI/HI's and AVH's. No indications of side effects from her medications. Mental Status Exam - Vital signs Last Vital Signs Temp 98.5 F 07/03/19 09:08 Pulse 98 H 07/03/19 09:08 Resp 18 07/03/19 09:08 BP 111/74 07/03/19 09:08 Pulse Ox 100 07/03/19 09:08 - Exam Narrative exam: MSE: Appearance: calm, cooperative Behavior: regular eye contact Speech: hyper verbal Mood:: still euthymic Affect: congruent to mood Thought Process: tangential, loose associations Thought Content: denies SI/HI's and AVH's, somewhat delusional Motor Activity: ambulatory Cognition: A/O x 3 Insight: poor Judgment: poor Assessment and Plan Impression: Unspecified Mood DO with psy features. The patient is still manic. Today the patient was cooperative, but still hyper verbal during the assessment. UDS was negative. DDx: Bipolar DO with psychosis, SCAD, Schizophrenia Recommendation/Plan: Continue 1013, Risperdal to 2 mg PO HS for mood/psychosis, and Depakote 500 mg PO BID for mood. Dispo: The patient was accetped at [facility] for inpatient psy services. Will staff with Dr Margarita Yeung.
== END 2019-07-03 09:09 ==
LOC: ED 04:06 → EEVIPCON 04:06 → ED 07-03 09:09
DX: F30.2 Manic episode, severe with psychotic symptoms (principal); F39 Unspecified mood [affective] disorder; F17.200 Nicotine dependence, unspecified, uncomplicated; F12.10 Cannabis abuse, uncomplicated; Z98.890 Other specified postprocedural states; Z87.442 Personal history of urinary calculi; Z91.011 Allergy to milk products; Z91.018 Allergy to other foods
CPT/HCPCS: 36415; 80048; 80061; 80164; 80307; 81001; 81025; 82150; 83036; 83690; 84075; 84443; 84450; 84460; 85027; 96372; 99285; J2060; J3486; 80320; G0480

== ENCOUNTER 2019-07-06 20:35 | Emergency (ER) | payer MEDICAID ==
[2019-07-06 20:48] VITALS: BP 132/86
--- NOTE | 2019-07-06 21:42 | Emergency Department Report ---
Blank Doc - Documentation Documentation: 29-year-old female that presents with n/v x2 days. This initial assessment/diagnostic orders/clinical plan/treatment(s) is/are subject to change based on patient's health status, clinical progression and re- assessment by fellow clinical providers in the ED. Further treatment and workup at subsequent clinical providers discretion. Patient/guardians urged not to elope from the ED as their condition may be serious if not clinically assessed and managed. Initial orders include: 1- Patient sent to [facility] for further evaluation and treatment 2- labs 3- UA
[2019-07-06 22:25] LABS: Basophils # (Auto) 0.1 K/mm3 (0.0-0.1); Basophils % (Auto) 0.9 % (0.0-1.8); Eosinophils # (Auto) 0.1 K/mm3 (0.0-0.4); Hemoglobin 12.5 gm/dl (10.1-14.3); Lymphocytes # (Auto) 2.1 K/mm3 (1.2-5.4); Lymphocytes % (Auto) 35.2 % (13.4-35.0); Mean Corpuscular HGB Conc 34 % (30-34); Mean Corpuscular Volume 81 fl (79-97); Monocytes # (Auto) 0.4 K/mm3 (0.0-0.8); Monocytes % (Auto) 5.9 % (0.0-7.3); Platelet Count 243 K/mm3 (140-440); Red Blood Count 4.57 M/mm3 (3.65-5.03); Red Cell Distribution Width 16.1 % (13.2-15.2)
[2019-07-06 22:53] LABS: Alanine Aminotransferase 15 units/L (7-56); Albumin 4.4 g/dL (3.9-5); BUN/Creatinine Ratio 14; Blood Urea Nitrogen 11 mg/dL (7-17); Calcium 9.7 mg/dL (8.4-10.2); Hemolysis Index 72
[2019-07-06 23:08] LABS: Bilirubin,Urine NEG (Negative); Blood,Urine NEG (Negative); Color,Urine Yellow (Yellow); Mucus,Urine FEW /HPF; Urobilinogen,Urine < 2.0 mg/dL (<2.0)
== END 2019-07-06 23:07 | disposition left against medical advice (07) ==
LOC: ED 20:35
DX: R11.10 Vomiting, unspecified (principal); R10.9 Unspecified abdominal pain; Z53.21 Procedure and treatment not carried out due to patient leaving prior to being seen by health care provider
CPT/HCPCS: 36415; 80053; 81001; 83690; 84703; 85025; 87086

== ENCOUNTER 2019-07-08 01:13 | Emergency (ER) | payer MEDICAID ==
[2019-07-08 03:49] LABS: Basophils % (Auto) 0.5 % (0.0-1.8); Eosinophils # (Auto) 0.1 K/mm3 (0.0-0.4); Eosinophils % (Auto) 0.9 % (0.0-4.3); Hematocrit 36.4 % (30.3-42.9); Hemoglobin 12.1 gm/dl (10.1-14.3); Lymphocytes # (Auto) 2.1 K/mm3 (1.2-5.4); Lymphocytes % (Auto) 31.8 % (13.4-35.0); Mean Corpuscular HGB Conc 33 % (30-34); Mean Corpuscular Volume 80 fl (79-97); Monocytes # (Auto) 0.4 K/mm3 (0.0-0.8); Monocytes % (Auto) 5.5 % (0.0-7.3); Platelet Count 248 K/mm3 (140-440); Red Blood Count 4.55 M/mm3 (3.65-5.03)
[2019-07-08 04:14] LABS: Alanine Aminotransferase 12 units/L (7-56); Albumin 4.2 g/dL (3.9-5); BUN/Creatinine Ratio 15; Blood Urea Nitrogen 9 mg/dL (7-17); Calcium 9.2 mg/dL (8.4-10.2); Hemolysis Index 4
[2019-07-08 06:54] LABS: Bilirubin,Urine NEG (Negative); Blood,Urine LG (Negative); Color,Urine Red (Yellow)
[2019-07-08 07:04] LABS: RBC,Urine > 182.0 /HPF (0.0-6.0); WBC,Urine > 182.0 /HPF (0.0-6.0)
--- NOTE | 2019-07-08 07:05 | Emergency Department Report ---
ED Abdominal Pain HPI - General Chief Complaint: Abdominal Pain Stated Complaint: CHRONIC ABD PAIN Time Seen by Provider: 07/08/19 02:54 Source: patient Mode of arrival: Ambulatory Limitations: No Limitations - History of Present Illness Initial Comments: 29-year-old -[place] female with a reported past medical history of bipolar disorder, kidney stones with a long history of chronic abdominal pain which she states is been evaluated by Tommy Will, and another physician since emergency department complaining of continued issues with abdominal cramping. States she is due to follow up with her [employer] for an MRI to help try to figure out what the issues with her recurrent bacterial vaginosis infections and his abdominal discomfort. MRI she reported has been scheduled today primarily she is trying to get something to help with the pain she reports no new symptoms no change in symptom character she reports no new medical issues as stated.. She states that the pain primarily started when she removes her navel piercing several months ago showed over a year ago. States that the only thing she can relate to the emergency room the pain ever since that today she's been having tenderness to that region. MD Complaint: abdominal pain Location: periumbilical Radiation: none, L flank, R flank Migration to: no migration Severity: mild Quality: aching Consistency: constant Improves With: nothing Worsens With: nothing Associated Symptoms: denies other symptoms - Related Data Home Medications Medication Instructions Recorded Confirmed Last Taken ARIPiprazole 5 mg PO QDAY 07/08/19 07/08/19 Unknown Divalproex ER [DepaKOTE ER] 500 mg PO BID 07/08/19 07/08/19 Unknown Previous Rx's Medication Instructions Recorded Last Taken Type Hyoscyamine Subl [Levsin Sl 0.125 0.125 mg SL Q6HR PRN #20 tab 07/08/19 Unknown Rx TAB] Ondansetron [Zofran ODT TAB] 8 mg PO Q12HR #14 tab.rapdis 07/08/19 Unknown Rx Allergies Allergy/AdvReac Type Severity Reaction Status Date / Time lactose Allergy Diarrhea Verified 08/29/16 05:34 risperidone [From Risperdal] Allergy Itching Verified 07/08/19 06:16 tomato Allergy Unknown Verified 08/29/16 05:34 ED Review of Systems ROS: Stated complaint: CHRONIC ABD PAIN Other details as noted in HPI Comment: All other systems reviewed and negative ED Past Medical Hx - Past Medical History Previous Medical History?: Yes Hx Hypertension: No Hx Congestive Heart Failure: No Hx Diabetes: (GDMM this ) Hx Deep Vein Thrombosis: No Hx Renal Disease: No Hx Sickle Cell Disease: No Hx Seizures: No Hx Kidney Stones: Yes Hx Psychiatric Treatment: Yes (Bipolar) Hx Asthma: No Hx COPD: No Hx HIV: No Additional medical history: right hydronephrosis. Chronic Abdominal pain - Surgical History Past Surgical History?: Yes Additional Surgical History: wisdom teeth. deviated septum - Social History Smoking Status: Never Smoker Substance Use Type: Marijuana - Medications Home Medications: Home Medications Medication Instructions Recorded Confirmed Last Taken Type ARIPiprazole 5 mg PO QDAY 07/08/19 07/08/19 Unknown History Divalproex ER [DepaKOTE ER] 500 mg PO BID 07/08/19 07/08/19 Unknown History Hyoscyamine Subl [Levsin Sl 0.125 0.125 mg SL Q6HR PRN #20 tab 07/08/19 Unknown Rx TAB] Ondansetron [Zofran ODT TAB] 8 mg PO Q12HR #14 tab.rapdis 07/08/19 Unknown Rx ED Physical Exam - General Limitations: No Limitations General appearance: alert, in no apparent distress - Head Head exam: Present: atraumatic, normocephalic - Eye Eye exam: Present: normal appearance, PERRL, EOMI Pupils: Present: normal accommodation - ENT ENT exam: Present: normal exam, mucous membranes moist - Neck Neck exam: Present: normal inspection - Respiratory Respiratory exam: Present: normal lung sounds bilaterally. Absent: respiratory distress, wheezes, rales, rhonchi, accessory muscle use, decreased breath sounds - Cardiovascular Cardiovascular Exam: Present: regular rate, normal rhythm. Absent: systolic murmur, diastolic murmur, rubs, gallop - GI/Abdominal GI/Abdominal exam: Present: soft, tenderness (around the umbilicus region.), normal bowel sounds - Extremities Exam Extremities exam: Present: normal inspection - Back Exam Back exam: Present: normal inspection - Neurological Exam Neurological exam: Present: alert, oriented X3 - Psychiatric Psychiatric exam: Present: normal affect, normal mood - Skin Skin exam: Present: warm, dry, intact, normal color. Absent: rash ED Medical Decision Making - Lab Data Result diagrams: 07/08/19 03:20 07/08/19 03:20 - Medical Decision Making 29-year-old female with chronic abdominal pain no nausea or vomiting present. No hematemesis nor hematochezia no dysuria. Her lab findings are limited to the benign. Her abdominal pain is of unclear etiology. Ms. Sterling's evaluation has not identified a emergent etiology for the abdominal pain. Specifically, given the very benign exam, normal laboratory studies, and lack of significant risk factors, I have a very low suspicion for appendicitis, ischemic bowel, bowel perforation, or any other life threatening disease. Ms. Sterling has suspicion that some of her mental health medications may be causing some of her symptoms which is always a possibility however was needs to be further evaluated with mental health addictions counselor and gastro-enterology. I have discussed with the patient the level of uncertainty with undifferentiated abdominal pain and clearly explained the need to follow-up as noted on the discharge instructions, or return to the Emergency Department immediately if the pain worsens, develops fever, persistent and uncontrollable vomiting, or for any new symptoms or concerns. I discussed with the patient that this presentation today for abdominal pain could represent a significant risk for an acute abdominal process. Although the tests in the ED were essentially normal, there is still a possibility of a process such as appendicitis, diverticulitis, cholecystitis, ulcer, early bowel obstruction, mesenteric ischemia, kidney stone, or even kidney infection which could subsequently cause disability or . The patient understands that they must return within 24 hours for a recheck or see their physician within 24 hours for re-exam due to the possibility of significant surgical or medical process. Been advised to call the emergency department therefore unsure of what to do. Critical care attestation.: If time is entered above; I have spent that time in minutes in the direct care of this critically ill patient, excluding procedure time. ED Disposition Clinical Impression: Chronic abdominal pain Disposition: DC-01 TO HOME OR SELFCARE Is pt being admited?: No Does the pt Need Aspirin: No Condition: Stable Instructions: Abdominal Pain (ED) Prescriptions: Hyoscyamine Subl [Levsin Sl 0.125 TAB] 0.125 mg SL Q6HR PRN #20 tab PRN Reason: abdominal cramps and spasms Ondansetron [Zofran ODT TAB] 8 mg PO Q12HR #14 tab.rapdis Referrals: [facility] [Provider Group] - 3-5 Days
== END 2019-07-08 07:54 | disposition home or self-care (01) ==
LOC: ED 01:13
DX: R10.33 Periumbilical pain (principal); G89.29 Other chronic pain; F31.9 Bipolar disorder, unspecified; Z87.442 Personal history of urinary calculi; Z79.899 Other long term (current) drug therapy; Z91.011 Allergy to milk products; Z91.018 Allergy to other foods
CPT/HCPCS: 36415; 80053; 81001; 84703; 85025; 99283

== ENCOUNTER 2019-07-27 08:08 | Emergency (ER) | payer MEDICAID ==
[2019-07-27 08:17] VITALS: BP 136/90
--- NOTE | 2019-07-27 08:49 | Emergency Department Report ---
Chief Complaint: Medical Clearance Stated Complaint: TREMORS SIDE EFFECTS Time Seen by Provider: 07/27/19 08:31 - HPI History of Present Illness: Patient is a 29-year-old female presents to the emergency room with complaints of tremors bilateral hands that began a few days ago. She states she was recently started on Abilify on 07/04/2019 by [facility]. She denies any other symptoms at all. She denies any fever, chills, nausea, vomiting, CP, SOB. Patient reports that she has been on several different psychiatric medicines and states that she has side effects from each one. She denies any SI, HI, or hallucinations. initial vitals with tachycardia which improved upon repeat pt is afebrile mild tremors to the bilateral hands could be related to tardive dyskinesia vs extrapyramidal symptoms no clinical signs or symptoms of serotonin syndrome or neuroleptic malignant syndrome advised pt to stop the abilify discussed with pt to please follow up with a mental health facility as soon as possible for medication management pt given referrals to [facility] and [facility] - Exam Vital Signs: Vital Signs 07/27/19 08:15 Temperature 98.8 F Pulse Rate 114 H Respiratory 18 Rate Blood Pressure 136/90 O2 Sat by Pulse 95 Oximetry MSE screening note: Focused history and physical exam performed. ED Disposition for MSE Clinical Impression: Medication side effect Disposition: DC-01 TO HOME OR SELFCARE Is pt being admited?: No Does the pt Need Aspirin: No Condition: Stable Additional Instructions: Please stop taking Abilify. Follow-up with the [facility] as soon as possible for medication management or one of the other hospitals listed below. Return to the emergency room immediately for any new or worsening symptoms or if begin feeling thoughts of wanting to hurt herself or others. [facility] Address: [address] [place] [address] , [place] [address] Open 24 hours [facility] Address: [address], [place] [address] Referrals: [facility] [Outside] - [facility] Time of Disposition: 08:47 Print Language: UKRAINIAN
== END 2019-07-27 08:58 | disposition home or self-care (01) ==
LOC: ED 08:08
DX: R25.1 Tremor, unspecified (principal); T50.905A Adverse effect of unspecified drugs, medicaments and biological substances, initial encounter; T78.8XXA Other adverse effects, not elsewhere classified, initial encounter; X58.XXXA Exposure to other specified factors, initial encounter; Y93.89 Activity, other specified; Y92.89 Other specified places as the place of occurrence of the external cause; Y99.8 Other external cause status
CPT/HCPCS: 99282

== ENCOUNTER 2020-12-07 10:53 | Emergency (ER) | payer MEDICAID ==
--- NOTE | 2020-12-07 11:32 | Emergency Department Report ---
HPI <JESSICA VALERIO - Last Filed: 12/07/20 19:13> - HPI HPI: Room 13 The patient is a 30-year-old female present with a chief complaint of altered mental status. Patient has history of schizophrenia and reportedly family states the patient's behavior changed yesterday. The patient is sitting on a mattress rocking back and forth making nonsensical statements. Patient answers some questions when prompted other times she just repeats the questions. Patient denies suicidal ideation. Patient denies pain of any type <PHILIP PINK - Last Filed: 12/08/20 19:17> - General Chief Complaint: Altered Mental Status Time Seen by Provider: 12/07/20 11:15 ED Past Medical Hx <JESSICA VALERIO - Last Filed: 12/07/20 19:13> - Past Medical History Hx Hypertension: No Hx Diabetes: (GDMM this ) Hx Kidney Stones: Yes Hx Psychiatric Treatment: Yes (Bipolar, schizophrenia) Additional medical history: Right hydronephrosis. Chronic Abdominal pain - Surgical History Additional Surgical History: Deviated septum - Family History Family history: no significant - Social History Smoking Status: Never Smoker Substance Use Type: None <PHILIP PINK - Last Filed: 12/08/20 19:17> - Medications Home Medications: Home Medications Medication Instructions Recorded Confirmed Last Taken Type ARIPiprazole 5 mg PO QDAY 07/08/19 07/08/19 Unknown History Divalproex ER [DepaKOTE ER] 500 mg PO BID 07/08/19 07/08/19 Unknown History Hyoscyamine Subl [Levsin Sl 0.125 0.125 mg SL Q6HR PRN #20 tab 07/08/19 Unknown Rx TAB] Ondansetron [Zofran ODT TAB] 8 mg PO Q12HR #14 tab.rapdis 07/08/19 Unknown Rx ED Review of Systems ROS: Stated complaint: MENTAL HEALTH Other details as noted in HPI <JESSICA VALERIO - Last Filed: 12/07/20 19:13> ROS: Stated complaint: MENTAL HEALTH Other details as noted in HPI Comment: Unobtainable due to pts medical conditions <PHILIP PINK - Last Filed: 12/08/20 19:17> Physical Exam - Physical Exam Vital Signs: Vital Signs 12/07/20 14:03 Temperature 98.6 F Pulse Rate 97 H Blood Pressure 128/81 [Left] <JESSICA VALERIO. - Last Filed: 12/07/20 19:13> - Physical Exam Physical Exam: GENERAL: The patient is well-developed well-nourished female sitting on mattress on the floor with legs crossed rocking back and forth making nonsensical statements. [] HEENT: Normocephalic. Atraumatic. Extraocular motions are intact. Patient has moist mucous membranes. NECK: Supple. Trachea midline CHEST/LUNGS: Clear to auscultation. There is no respiratory distress noted. HEART/CARDIOVASCULAR: Regular. There is no tachycardia. There is no gallop rub or murmur. ABDOMEN: Abdomen is soft, nontender. Patient has normal bowel sounds. SKIN: There is no rash. There is no edema. There is no diaphoresis. NEURO: The patient is awake and alert. The patient is intermittently cooperative. The patient has no focal neurologic deficits. The patient has normal speech albeit rambling MUSCULOSKELETAL: There is no evidence of acute injury. <PHILIP PINK - Last Filed: 12/08/20 19:17> ED Course Vital Signs 12/07/20 14:03 Temperature 98.6 F Pulse Rate 97 H Blood Pressure 128/81 [Left] - Reevaluation(s) Reevaluation #1: 12/07/20 18:58 Patient uncooperative with office systems technology instructor, not allowing her to perform ultrasound. Ativan 2 mg IM ordered. Reevaluation #2: 12/07/20 19:13 Spoke with mental health multi township assessor, Leigh Ann angulo. Recommends placing patient on 1013. <JESSICA VALERIO. - Last Filed: 12/07/20 19:13> ED Medical Decision Making - Lab Data Result diagrams: 12/07/20 14:52 12/07/20 14:52 <JESSICA VALERIO - Last Filed: 12/07/20 19:13> - Lab Data Result diagrams: 12/07/20 14:52 12/07/20 14:52 Laboratory Tests 12/07/20 12/07/20 12/07/20 14:52 14:52 14:52 WBC 6.6 RBC 4.59 Hgb 12.7 Hct 39.9 MCV 87 MCH 28 MCHC 32 RDW 19.0 H Plt Count 232 Lymph % (Auto) Handkerchief Maker Mclean % (Auto) Handkerchief Maker Eos % (Auto) Handkerchief Maker Baso % (Auto) Handkerchief Maker Lymph # (Auto) Handkerchief Maker Mclean # (Auto) Handkerchief Maker Eos # (Auto) Handkerchief Maker Baso # (Auto) Handkerchief Maker Seg Neutrophils % Handkerchief Maker Seg Neutrophils # Handkerchief Maker Sodium 131 L Potassium 3.7 Chloride 96.8 L Carbon Dioxide 21 L Anion Gap 17 BUN 4 L Creatinine 0.5 L Estimated GFR > 60 BUN/Creatinine Ratio 8 Glucose 70 Calcium 9.0 HCG, Quant [id number] H Urine Color Urine Turbidity Urine pH Ur Specific Juda Urine Protein Urine Glucose (UA) Urine Ketones Urine Blood Urine Nitrite Urine Bilirubin Urine Urobilinogen Ur Leukocyte Esterase Urine WBC (Auto) Urine RBC (Auto) U Epithel Cells (Auto) Urine Bacteria (Auto) Urine Mucus Salicylates Urine Opiates Screen Urine Methadone Screen Acetaminophen Ur Barbiturates Screen Valproic Acid Ur Phencyclidine Scrn Ur Amphetamines Screen U Benzodiazepines Scrn Urine Cocaine Screen U Marijuana (THC) Screen Drugs of Abuse Note Plasma/Serum Alcohol 12/07/20 12/07/20 12/07/20 14:52 14:52 14:52 WBC RBC Hgb Hct MCV MCH MCHC RDW Plt Count Lymph % (Auto) Mclean % (Auto) Eos % (Auto) Baso % (Auto) Lymph # (Auto) Mclean # (Auto) Eos # (Auto) Baso # (Auto) Seg Neutrophils % Seg Neutrophils # Sodium Potassium Chloride Carbon Dioxide Anion Gap BUN Creatinine Estimated GFR BUN/Creatinine Ratio Glucose Calcium HCG, Quant Urine Color Urine Turbidity Urine pH Ur Specific Juda Urine Protein Urine Glucose (UA) Urine Ketones Urine Blood Urine Nitrite Urine Bilirubin Urine Urobilinogen Ur Leukocyte Esterase Urine WBC (Auto) Urine RBC (Auto) U Epithel Cells (Auto) Urine Bacteria (Auto) Urine Mucus Salicylates < 0.3 L Urine Opiates Screen Urine Methadone Screen Acetaminophen 5.0 L Ur Barbiturates Screen Valproic Acid < 2.8 L Ur Phencyclidine Scrn Ur Amphetamines Screen U Benzodiazepines Scrn Urine Cocaine Screen U Marijuana (THC) Screen Drugs of Abuse Note Plasma/Serum Alcohol < 0.01 12/07/20 12/07/20 Unknown Unknown WBC RBC Hgb Hct MCV MCH MCHC RDW Plt Count Lymph % (Auto) Mclean % (Auto) Eos % (Auto) Baso % (Auto) Lymph # (Auto) Mclean # (Auto) Eos # (Auto) Baso # (Auto) Seg Neutrophils % Seg Neutrophils # Sodium Potassium Chloride Carbon Dioxide Anion Gap BUN Creatinine Estimated GFR BUN/Creatinine Ratio Glucose Calcium HCG, Quant Urine Color Yellow Urine Turbidity Clear Urine pH 6.0 Ur Specific Juda 1.018 Urine Protein 30 mg/dl Urine Glucose (UA) 50 Urine Ketones 20 Urine Blood Sm Urine Nitrite Neg Urine Bilirubin Neg Urine Urobilinogen < 2.0 Ur Leukocyte Esterase Neg Urine WBC (Auto) 2.0 Urine RBC (Auto) 29.0 U Epithel Cells (Auto) 6.0 Urine Bacteria (Auto) 1+ Urine Mucus Few Salicylates Urine Opiates Screen Negative Urine Methadone Screen Negative Acetaminophen Ur Barbiturates Screen Negative Valproic Acid Ur Phencyclidine Scrn Negative Ur Amphetamines Screen Negative U Benzodiazepines Scrn Negative Urine Cocaine Screen Negative U Marijuana (THC) Screen Negative Drugs of Abuse Note Disclamer Plasma/Serum Alcohol - Differential Diagnosis Schizophrenia <PHILIP PINK - Last Filed: 12/08/20 19:17> Critical care attestation.: If time is entered above; I have spent that time in minutes in the direct care of this critically ill patient, excluding procedure time. <JESSICA VALERIO - Last Filed: 12/07/20 19:13> Critical care attestation.: If time is entered above; I have spent that time in minutes in the direct care of this critically ill patient, excluding procedure time. <PHILIP PINK - Last Filed: 12/08/20 19:17> ED Disposition <JESSICA VALERIO - Last Filed: 12/07/20 19:13> Is pt being admited?: No Does the pt Need Aspirin: No <PHILIP PINK - Last Filed: 12/08/20 19:17> Clinical Impression: Schizophrenia Disposition: - TO HOME OR SELFCARE Condition: Stable Referrals: PRIMARY CARE, [Primary Care Provider] - 3-5 Days
[2020-12-07] MEDS ORDERED: HALOPERIDOL LACTATE 5 MG/1 ML INJ IM PRN (11:54)
[2020-12-07] MEDS ORDERED: diphenhydrAMINE 50 MG/ML VIAL IM PRN (11:54)
[2020-12-07] MEDS ORDERED: LORazepam 2 MG/ML VIAL IM PRN (11:54)
[2020-12-07 15:35] LABS: Bacteria,Urine 1+ /HPF (Negative); Bilirubin,Urine NEG (Negative); Blood,Urine SM (Negative); Color,Urine Yellow (Yellow); Mucus,Urine FEW /HPF; Urobilinogen,Urine < 2.0 mg/dL (<2.0)
[2020-12-07 15:41] LABS: Hematocrit 39.9 % (30.3-42.9); Hemoglobin 12.7 gm/dl (10.1-14.3); Mean Corpuscular HGB Conc 32 % (30-34); Mean Corpuscular Volume 87 fl (79-97); Platelet Count 232 K/mm3 (140-440); Red Blood Count 4.59 M/mm3 (3.65-5.03)
[2020-12-07 15:41] LABS: Amphetamine Screen,Urine Negative; Benzodiazepines Screen,Urine Negative; Cannabinoid Screen,Urine Negative; Cocaine Screen,Urine Negative; Methadone Screen,Urine Negative; Opiate Screen,Urine Negative
[2020-12-07 15:42] LABS: Blood Urea Nitrogen 4 mg/dL (7-17); Hemolysis Index 30
[2020-12-07 15:56] LABS: BUN/Creatinine Ratio 8
[2020-12-07] MEDS ORDERED: LORazepam 2 MG/ML VIAL IM ONE (18:57)
[2020-12-07] MEDS ORDERED: SODIUM CHLORIDE 0.9% 1000 ML 1,000 ML IV ONE (20:54)
--- NOTE | 2020-12-07 22:18 | Ultrasound Report ---
US OB >= 14 weeks Fetus INDICATION / CLINICAL INFORMATION: , clearance for psychiatric admission. COMPARISON: None available. FINDINGS: A single live fetus of approximately 12 weeks 0 days gestational age is seen in the uterus. hea rt rate is 156. [place]-rump length is 5.4 cm. Both ovaries are normal in size and appearance. The plac enta is posterior. IMPRESSION: Single live fetus of approximately 12 weeks 0 days gestational age in the uterus with heart rat e of 156 Signer Name: Derek Neff MD FACR Signed: 12/07/2020 10:14 PM Workstation Name: [id number]
[2020-12-08] MEDS ORDERED: SODIUM CHLORIDE 0.9% 1000 ML 1,000 ML IV ONE (06:11)
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
--- NOTE | 2020-12-09 09:22 | Progress Note ---
Subjective - Reason for Consult Consult date: 12/09/20 Reason for consult: MHE Requesting physician: PHILIP PINK - Chief Complaint Chief complaint: Psych Progress Patient continues to respond to internal stimulus, talking to self and starring blank in to the air, making nonsensical words and repeating statements or words mentioned around her. REVIEW OF SYSTEMS ROS cannot be reliably obtained from the patient due to her confusion MENTAL STATUS EXAMINATION General Appearance and Behavior: Age appropriate, good hygiene, wearing appropriate clothes, poor eye contact, uncooperative with questioning. Cooperation: disengaged Psychomotor Behavior: Psychomotor agitation Mood: n/a Affect and affective range: euthymic, euphoric Thought Process: Illogical, echolalial Thought Content: delusional Speech: pressured, loud volume at times Intellectual Functioning: Average Suicidal Ideation: n/a Homicidal Ideation: n/a Impulse Control: Impaired Insight and Judgment: Limited insight and judgment Memory: impaired Attention: Divided attention impaired Orientation: Alert, oriented Assessment and Plan - Psychiatric problem (1) Schizophrenia Current Visit: Yes Status: Acute Treatment Plan Refer to facility, status complicates treatment in ED. MEDICATIONS: Risks, benefits and alternatives of medications discussed with the patient, questions answered and consent obtained from patient. PSYCHOTHERAPY: Supportive psychotherapy provided MEDICAL: Per primary team DELIRIUM PRECAUTIONS: Please re-orient patient frequently, keep lights on during the day, and minimize benzodiazepines and opiates as these medications could worsen patient's confusion. OXYGRAPH OPERATOR: DISPOSITION: Do Recommend acute inpatient psychiatric hospitalization at this time. Case discussed with Dr. Squires who agrees with current disposition LEGAL STATUS: 1013 FOLLOW-UP: Will follow Thank you for the consult. Please contact with any questions and/or concerns. Mental Status Exam - Vital signs Last Vital Signs Temp 98.2 F 12/09/20 08:40 Pulse 88 12/09/20 08:40 Resp 18 12/09/20 08:40 BP 118/82 12/09/20 08:40 Pulse Ox 99 12/09/20 08:40 Assessment and Plan - Patient Problems (1) Schizophrenia Current Visit: Yes Status: Acute
[2020-12-11] MEDS ORDERED: LORazepam 2 MG/ML VIAL IM ONE ×2 (10:02→15:32)
--- NOTE | 2020-12-11 10:28 | Event Note ---
S: "My sister is holding me." Nurse states patient's behavior has esclated. O: Patient is walking around the treatment area. Speaking to unknown persons. Pressured, circular speech. A: acute psychosis, hx of schizophrenia, 12 weeks according to US obtained 12/07 P: Ativan for sedation, awaiting transfer to inpatient psychiatric facility
[2020-12-11] MEDS ORDERED: diphenhydrAMINE 50 MG/ML VIAL IM ONE (13:32)
[2020-12-11] MEDS ORDERED: LORazepam 2 MG/ML VIAL IM PRN (15:10)
--- NOTE | 2020-12-11 23:24 | Progress Note ---
Subjective - Reason for Consult Consult date: 12/11/20 Reason for consult: MHE Requesting physician: ANA BARNARD - Chief Complaint Chief complaint: Psych Progress No positive changes in behavior. patient continue to talk with self, non responsive to direct questioning REVIEW OF SYSTEMS ROS cannot be reliably obtained from the patient due to her confusion MENTAL STATUS EXAMINATION General Appearance and Behavior: Age appropriate, good hygiene, wearing appropriate clothes, poor eye contact, uncooperative with questioning. Cooperation: disengaged Psychomotor Behavior: Psychomotor agitation Mood: n/a Affect and affective range: euthymic, euphoric Thought Process: Illogical, echolalial Thought Content: delusional Speech: pressured, loud volume at times Intellectual Functioning: Average Suicidal Ideation: n/a Homicidal Ideation: n/a Impulse Control: Impaired Insight and Judgment: Limited insight and judgment Memory: impaired Attention: Divided attention impaired Orientation: Alert, oriented Assessment and Plan - Psychiatric problem (1) Schizophrenia Current Visit: Yes Status: Acute Treatment Plan Refer to facility, status complicates treatment in ED. MEDICATIONS: Risks, benefits and alternatives of medications discussed with the patient, questions answered and consent obtained from patient. PSYCHOTHERAPY: Supportive psychotherapy provided MEDICAL: Per primary team DELIRIUM PRECAUTIONS: Please re-orient patient frequently, keep lights on during the day, and minimize benzodiazepines and opiates as these medications could worsen patient's confusion. PARKS RECREATION COORDINATOR: DISPOSITION: Do Recommend acute inpatient psychiatric hospitalization at this time. Case discussed with Dr. Squires who agrees with current disposition LEGAL STATUS: 1013 FOLLOW-UP: Will follow Thank you for the consult. Please contact with any questions and/or concerns. Mental Status Exam - Vital signs Last Vital Signs Temp 97.7 F 12/11/20 20:52 Pulse 83 12/11/20 20:52 Resp 16 12/11/20 22:05 BP 99/64 12/11/20 20:52 Pulse Ox 100 12/11/20 22:05 Assessment and Plan - Patient Problems (1) Schizophrenia Status: Acute
--- NOTE | 2020-12-12 09:41 | Progress Note ---
Subjective - Reason for Consult Consult date: 12/12/20 Reason for consult: MHE Requesting physician: ANA BARNARD - Chief Complaint Chief complaint: Psych Progress No positive changes in behavior, patient wandering around on floor. patient continue to talk with self, non responsive to direct questioning REVIEW OF SYSTEMS ROS cannot be reliably obtained from the patient due to her confusion MENTAL STATUS EXAMINATION General Appearance and Behavior: Age appropriate, good hygiene, wearing appropriate clothes, poor eye contact, uncooperative with questioning. Cooperation: disengaged Psychomotor Behavior: Psychomotor agitation Mood: n/a Affect and affective range: euthymic, euphoric Thought Process: Illogical, echolalial Thought Content: delusional Speech: pressured, loud volume at times Intellectual Functioning: Average Suicidal Ideation: n/a Homicidal Ideation: n/a Impulse Control: Impaired Insight and Judgment: Limited insight and judgment Memory: impaired Attention: Divided attention impaired Orientation: Alert, oriented Assessment and Plan - Psychiatric problem (1) Schizophrenia Current Visit: Yes Status: Acute Treatment Plan Refer to facility, status complicates treatment in ED. MEDICATIONS: Risks, benefits and alternatives of medications discussed with the patient, questions answered and consent obtained from patient. PSYCHOTHERAPY: Supportive psychotherapy provided MEDICAL: Per primary team DELIRIUM PRECAUTIONS: Please re-orient patient frequently, keep lights on during the day, and minimize benzodiazepines and opiates as these medications could worsen patient's confusion. PAINTER DECORATOR: DISPOSITION: Do Recommend acute inpatient psychiatric hospitalization at this time. Case discussed with Dr. Squires who agrees with current disposition LEGAL STATUS: 1013 FOLLOW-UP: Will follow Thank you for the consult. Please contact with any questions and/or concerns. Mental Status Exam - Vital signs Last Vital Signs Temp 98.7 F 12/12/20 02:12 Pulse 84 12/12/20 02:12 Resp 16 12/12/20 02:12 BP 88/50 12/12/20 02:12 Pulse Ox 99 12/12/20 02:12 Assessment and Plan - Patient Problems (1) Schizophrenia Status: Acute
--- NOTE | 2020-12-12 10:57 | Event Note ---
S: In seclusion, recent sedation O: sedated, arousable, protecting airway,. A: acute psychosis, hx of schizophrenia, 12 weeks according to US obtained 12/07 P: renewed seclusion order, awaiting transfer to inpatient psychiatric facility
--- NOTE | 2020-12-13 09:25 | Progress Note ---
Subjective - Reason for Consult Consult date: 12/13/20 Reason for consult: agitation - Chief Complaint Chief complaint: I attempted to interview the patient today, she is lying down asleep covered up in linen. The nurse and myself attempted to awaken the patient, she aroused but did not respond to verbal stimuli. Both the nurse and the sitter says the patient has been very agitated and aggressive. REVIEW OF SYSTEMS ROS cannot be reliably obtained from the patient due to her confusion MENTAL STATUS EXAMINATION General Appearance and Behavior: Age appropriate, covered up with linen, uncooperative with questioning. Cooperation: disengaged Psychomotor Behavior: Psychomotor agitation Mood: n/a Affect and affective range: N/A Thought Process: N/V Thought Content: N/V Speech: N/V Intellectual Functioning: N/V Suicidal Ideation: n/a Homicidal Ideation: n/a Impulse Control: Impaired Insight and Judgment: Limited insight and judgment Memory: impaired Attention: Divided attention impaired Orientation: N/A Assessment and Plan (1) Schizophrenia Current Visit: Yes Status: Acute Treatment Plan Depakote DR 125mg po BID Trazodone 50mg po qhs Risks, benefits and alternatives of medications discussed with the patient, questions answered and consent obtained from patient. PSYCHOTHERAPY: Supportive psychotherapy provided MEDICAL: Per primary team DELIRIUM PRECAUTIONS: Please re-orient patient frequently, keep lights on during the day, and minimize benzodiazepines and opiates as these medications could worsen patient's confusion. ADMINISTRATIVE SERVICES ASSISTANT: per primary DISPOSITION: Recommend acute inpatient psychiatric hospitalization at this time. Case discussed with Dr. Squires who agrees with current disposition LEGAL STATUS: 1013 FOLLOW-UP: Will follow Thank you for the consult. Please contact with any questions and/or concerns. Mental Status Exam - Vital signs Last Vital Signs Temp 98.7 F 12/12/20 02:12 Pulse 84 12/12/20 02:12 Resp 16 12/13/20 03:42 BP 88/50 12/12/20 02:12 Pulse Ox 99 12/13/20 03:42
[2020-12-13] MEDS: DIVALPROEX DR 125 MG TAB PO SCH ×2 (10:23→21:55)
--- NOTE | 2020-12-13 10:33 | Event Note ---
S: In seclusion,patient informed me that patient is agitated, refusing to take medications O: arousable, protecting airway A: acute psychosis, hx of schizophrenia, 12 weeks according to US obtained 12/07 P: renewed seclusion order, awaiting transfer to inpatient psychiatric facility
[2020-12-13] MEDS: traZODone 50 MG TAB PO SCH (21:55)
--- NOTE | 2020-12-14 10:23 | Progress Note ---
Subjective - Reason for Consult Consult date: 12/14/20 Reason for consult: psychosis - Chief Complaint Chief complaint: I attempted to interview the patient today, she is lying down with her head covered with linen. She is talking to herself, and rambling nonsensically. The sitter caring for the patient states "you can't get anything out of her. She doesn't make a lot of sense." REVIEW OF SYSTEMS ROS cannot be reliably obtained from the patient due to her confusion MENTAL STATUS EXAMINATION General Appearance and Behavior: Age appropriate, covered up with linen, uncooperative with questioning. Cooperation: disengaged Psychomotor Behavior: Psychomotor agitation Mood: n/a Affect and affective range: N/A Thought Process: responding to internal stimuli Thought Content: N/V Speech: nonsensical Intellectual Functioning: N/V Suicidal Ideation: n/a Homicidal Ideation: n/a Impulse Control: Impaired Insight and Judgment: Impaired insight and judgment Memory: impaired Attention: Divided attention impaired Orientation: N/A Assessment and Plan (1) Schizophrenia Current Visit: Yes Status: Acute Treatment Plan Increased Depakote DR 250mg po BID Start Olanzapine 2.5mg po daily Risks, benefits and alternatives of medications discussed with the patient, questions answered and consent obtained from patient. PSYCHOTHERAPY: Supportive psychotherapy provided MEDICAL: Per primary team DELIRIUM PRECAUTIONS: Please re-orient patient frequently, keep lights on during the day, and minimize benzodiazepines and opiates as these medications could worsen patient's confusion. NEUROPSYCHOLOGIST: per primary DISPOSITION: Recommend acute inpatient psychiatric hospitalization at this time. Case discussed with Dr. Squires who agrees with current disposition LEGAL STATUS: 1013 FOLLOW-UP: Will follow Thank you for the consult. Please contact with any questions and/or concerns. Mental Status Exam - Vital signs Last Vital Signs Temp 97.2 F L 12/14/20 02:01 Pulse 78 12/14/20 02:01 Resp 16 12/14/20 02:01 BP 98/63 12/14/20 02:01 Pulse Ox 98 12/14/20 02:01
--- NOTE | 2020-12-14 10:30 | Event Note ---
Date: 12/14/20 Vital Signs - 24 hr 12/13/20 12/14/20 19:58 02:01 Temperature 97.8 F 97.2 F L Pulse Rate 84 78 Respiratory 19 16 Rate Blood Pressure 95/65 98/63 [Left] O2 Sat by Pulse 100 98 Oximetry This patient was seen sleeping and/or resting comfortably in room #14. This patient initially presented about 1 week ago for acute psychosis. She is currently and had a ultrasound initially that showed a live intrauterine at about 12 weeks with an appropriate heart rate. Patient was seen today by the psychiatric team who recommends continuing her 1013 and ED hold for acute psychosis. The patient has been placed on psychiatric medications as per the psychiatric team. Her vital signs for the past 24 hours have been listed above and appear reassuring including being afebrile and no hypoxia. I spoke with the emergency department nurse and the psychiatric area who says that there have been no significant events either this morning or signed out to her from overnight. The patient is positive for COVID-19, tested 3 days ago. I have placed a repeat COVID-19 test for today. We will continue to monitor this patient.
[2020-12-14] MEDS: DIVALPROEX DR 125 MG TAB PO SCH (14:55)
[2020-12-14] MEDS ORDERED: DIVALPROEX DR 250 MG TAB PO SCH (22:00)
--- NOTE | 2020-12-15 00:14 | XRay Report ---
CHEST 1 VIEW 12/14/2020 11:02 PM INDICATION / CLINICAL INFORMATION: Hypoxia, COVID positive. Psych patient. COMPARISON: None available. FINDINGS: The patient is significantly rotated to the right. SUPPORT DEVICES: None. HEART / MEDIASTINUM: The heart size and pulmonary vasculature are normal for technique. LUNGS / PLEURA: No significant pulmonary or pleural abnormality. No pneumothorax. ADDITIONAL FINDINGS: No significant additional findings. IMPRESSION: No acute findings. Signer Name: Edgar Paiz MD Signed: 12/15/2020 12:09 AM Workstation Name: [id number]
--- NOTE | 2020-12-15 00:30 | Event Note ---
Date: 12/15/20 Informed by nursing that patient had SPO2 of 93% on room air while sleeping. Chest x-ray and labs ordered. However upon awakening the patient with ambulation the patient's SPO2 improved to 100% on room air. Chest x-ray unremarkable. Awaiting placement [facility] [address] [place] [address] XRay Report Signed Patient: LUBNA PRICE MR#: [id number] : 1990 Acct:[id number] Age/Sex: 30 / F ADM Date: 12/07/20 Loc: ED Attending Dr: Ordering Physician: PHILIP PINK MD Date of Service: 12/14/20 Procedure(s): XR chest 1V ap Accession Number(s): [id number] cc: PHILIP PINK MD Fluoro Time In Minutes: CHEST 1 VIEW 12/14/2020 11:02 PM INDICATION / CLINICAL INFORMATION: Hypoxia, COVID positive. Psych patient. COMPARISON: None available. FINDINGS: The patient is significantly rotated to the right. SUPPORT DEVICES: None. HEART / MEDIASTINUM: The heart size and pulmonary vasculature are normal for technique. LUNGS / PLEURA: No significant pulmonary or pleural abnormality. No pneumothorax. ADDITIONAL FINDINGS: No significant additional findings. IMPRESSION: No acute findings. Signer Name: Edgar Paiz MD Signed: 12/15/2020 12:09 AM Workstation Name: [id number] Transcribed By: RT Dictated By: Edgar Paiz MD Electronically Authenticated By: Edgar Paiz MD Signed Date/Time: 12/15/208 DD/ TD/TT: Print Cancel
[2020-12-15 01:37] LABS: Basophils # (Auto) 0.1 K/mm3 (0.0-0.1); Basophils % (Auto) 0.9 % (0.0-1.8); Eosinophils # (Auto) 0.1 K/mm3 (0.0-0.4); Hematocrit 41.9 % (30.3-42.9); Hemoglobin 13.9 gm/dl (10.1-14.3); Lymphocytes # (Auto) 2.3 K/mm3 (1.2-5.4); Lymphocytes % (Auto) 32.6 % (13.4-35.0); Mean Corpuscular HGB Conc 33 % (30-34); Mean Corpuscular Volume 85 fl (79-97); Monocytes # (Auto) 0.4 K/mm3 (0.0-0.8); Monocytes % (Auto) 5.7 % (0.0-7.3); Platelet Count 228 K/mm3 (140-440); Red Blood Count 4.93 M/mm3 (3.65-5.03)
[2020-12-15 01:53] LABS: Blood Urea Nitrogen 5 mg/dL (7-17); Calcium 9.1 mg/dL (8.4-10.2); Hemolysis Index 3
[2020-12-15] MEDS: traZODone 50 MG TAB PO SCH ×2 (01:53→23:52)
[2020-12-15 02:00] LABS: BUN/Creatinine Ratio 8
--- NOTE | 2020-12-15 09:32 | Progress Note ---
Subjective - Reason for Consult Consult date: 12/15/20 Reason for consult: psychosis - Chief Complaint Chief complaint: I attempted to interview the patient today, she is lying down with her head covered with linen. She's been this way since I've been seeing her. She is refusing to talk to me. When I touch her she mumbles, and pulls back. The patient would not engage after several attempts. REVIEW OF SYSTEMS ROS cannot be reliably obtained from the patient due to her confusion MENTAL STATUS EXAMINATION General Appearance and Behavior: Age appropriate, covered up with linen, uncooperative with questioning. Cooperation: disengaged Psychomotor Behavior: Psychomotor agitation Mood: n/a Affect and affective range: N/A Thought Process: responding to internal stimuli Thought Content: N/V Speech: nonsensical Intellectual Functioning: N/V Suicidal Ideation: n/a Homicidal Ideation: n/a Impulse Control: Impaired Insight and Judgment: Impaired insight and judgment Memory: impaired Attention: Divided attention impaired Orientation: N/A Assessment and Plan (1) Schizophrenia Current Visit: Yes Status: Acute Treatment Plan Continue Olanzapine 2.5mg po daily, will d/c and start Latuda 20mg po daily if pharm can order it Risks, benefits and alternatives of medications discussed with the patient, questions answered and consent obtained from patient. PSYCHOTHERAPY: Supportive psychotherapy provided MEDICAL: Per primary team DELIRIUM PRECAUTIONS: Please re-orient patient frequently, keep lights on during the day, and minimize benzodiazepines and opiates as these medications could worsen patient's confusion. RAT CULTURIST: per primary DISPOSITION: Recommend acute inpatient psychiatric hospitalization at this time. Case discussed with Dr. Squires who agrees with current disposition LEGAL STATUS: 1013 FOLLOW-UP: Will follow Thank you for the consult. Please contact with any questions and/or concerns. Mental Status Exam - Vital signs Last Vital Signs Temp 98.6 F 12/15/20 08:47 Pulse 80 12/15/20 08:47 Resp 20 12/15/20 08:47 BP 110/69 12/15/20 08:47 Pulse Ox 100 12/15/20 08:47
[2020-12-15] MEDS: LATUDA PO SCH (12:11)
--- NOTE | 2020-12-15 15:38 | Event Note ---
S: Patient refuses to cooperate with history taking. O: Sleeping. Easily arousable. Vital signs are stable. Vital signs are normal. A: Acute psychosis, history of schizophrenia, 13 weeks according to ultrasound obtained 12/07/2020 P: Renewed seclusion order, awaiting transfer to inpatient psychiatric facility
[2020-12-15] MEDS ORDERED: VANCOMYCIN/NS 1 GM/250 ML 1 GM/250 ML BAG IV ONE (15:52)
--- NOTE | 2020-12-16 09:29 | Progress Note ---
Subjective - Reason for Consult Consult date: 12/16/20 Reason for consult: psychosis - Chief Complaint Chief complaint: Per Nursing staff: The patient has been mumbling, with disorganized and nonsensical speech. She is resistive to care and unable to be redirected. The patient has been going in other patient's room sitting. She is easily agitated. I attempted to interview the patient again today, she is lying down with her head covered with linen. Her thoughts are disorganized. The patient has her food tray under her linen. She is not speaking or cooperating. She mumbles and then places the linen back over her head. REVIEW OF SYSTEMS ROS cannot be reliably obtained from the patient due to her confusion MENTAL STATUS EXAMINATION General Appearance and Behavior: Age appropriate, covered up with linen, uncooperative with questioning. Cooperation: disengaged Psychomotor Behavior: Psychomotor agitation Mood: n/a Affect and affective range: N/A Thought Process: responding to internal stimuli Thought Content: N/V Speech: nonsensical Intellectual Functioning: N/V Suicidal Ideation: n/a Homicidal Ideation: n/a Impulse Control: Impaired Insight and Judgment: Impaired insight and judgment Memory: impaired Attention: Divided attention impaired Orientation: N/A Assessment and Plan (1) Schizophrenia Current Visit: Yes Status: Acute Treatment Plan Increased Olanzapine 5mg po daily, will d/c and start Latuda 20mg po daily if pharm can order it. Spoke with pharm again today. Risks, benefits and alternatives of medications discussed with the patient, questions answered and consent obtained from patient. PSYCHOTHERAPY: Supportive psychotherapy provided MEDICAL: Per primary team DELIRIUM PRECAUTIONS: Please re-orient patient frequently, keep lights on during the day, and minimize benzodiazepines and opiates as these medications could worsen patient's confusion. RUG HOOKER: per primary DISPOSITION: Recommend acute inpatient psychiatric hospitalization at this time. Case discussed with Dr. Squires who agrees with current disposition LEGAL STATUS: 1013 FOLLOW-UP: Will follow Thank you for the consult. Please contact with any questions and/or concerns. Mental Status Exam - Vital signs Last Vital Signs Temp 98.8 F 12/15/20 22:00 Pulse 75 12/15/20 22:00 Resp 20 12/15/20 22:00 BP 118/67 12/15/20 22:00 Pulse Ox 97 12/15/20 22:00
--- NOTE | 2020-12-16 10:39 | Emergency Department Report ---
Blank Doc - Documentation Documentation: No new events No new complaints Awaiting placement
[2020-12-16] MEDS: LATUDA PO SCH (11:41)
[2020-12-16] MEDS: traZODone 50 MG TAB PO SCH (23:17)
--- NOTE | 2020-12-17 10:34 | Progress Note ---
Subjective - Reason for Consult Consult date: 12/17/20 Reason for consult: psychosis - Chief Complaint Chief complaint: Per Nursing staff: The patient is difficulty to follow and understand. She says the patient speech is nonsensical The patient was seen today, she is lying down and unable to participate. Her speech is disorganized and incoherent. REVIEW OF SYSTEMS ROS cannot be reliably obtained from the patient due to her confusion MENTAL STATUS EXAMINATION General Appearance and Behavior: Age appropriate, covered up with linen, uncooperative with questioning. Cooperation: disengaged Psychomotor Behavior: Psychomotor agitation Mood: n/a Affect and affective range: N/A Thought Process: responding to internal stimuli Thought Content: N/V Speech: nonsensical Intellectual Functioning: N/V Suicidal Ideation: n/a Homicidal Ideation: n/a Impulse Control: Impaired Insight and Judgment: Impaired insight and judgment Memory: impaired Attention: Divided attention impaired Orientation: N/A Assessment and Plan (1) Schizophrenia Current Visit: Yes Status: Acute Treatment Plan Increased Olanzapine 5mg po daily, will d/c and start Latuda 20mg po daily if pharm can order it. Spoke with pharm again today. Risks, benefits and alternatives of medications discussed with the patient, q uestions answered and consent obtained from patient. PSYCHOTHERAPY: Supportive psychotherapy provided MEDICAL: Per primary team DELIRIUM PRECAUTIONS: Please re-orient patient frequently, keep lights on during the day, and minimize benzodiazepines and opiates as these medications could worsen patient's confusion. DINKEY BRAKEMAN: per primary DISPOSITION: Recommend acute inpatient psychiatric hospitalization at this time. Case discussed with Dr. Squires who agrees with current disposition LEGAL STATUS: 1013 FOLLOW-UP: Will follow Thank you for the consult. Please contact with any questions and/or concerns. Mental Status Exam - Vital signs Last Vital Signs Temp 97.9 F 12/16/20 21:51 Pulse 82 12/16/20 21:51 Resp 20 12/16/20 21:52 BP 112/56 12/16/20 21:51 Pulse Ox 99 12/16/20 21:52
--- NOTE | 2020-12-17 11:32 | Event Note ---
Date: 12/17/20 S- in seclusion; nurse reports patient seems to be more cooperative today O- vital signs are stable; patient is cooperative; responds to my questioning, however speech is disorganized and incoherent A- COVID-19, Acute psychosis, history of schizophrenia, 13 weeks according to ultrasound obtained 12/07/2020 P- 1013; awaiting transfer to inpatient psychiatric facility
[2020-12-17] MEDS: LATUDA PO SCH (11:44)
[2020-12-17] MEDS: traZODone 50 MG TAB PO SCH (22:43)
[2020-12-18 09:23] VITALS: BP 114/57
--- NOTE | 2020-12-18 09:46 | Progress Note ---
Subjective - Reason for Consult Consult date: 12/18/20 Reason for consult: psychosis - Chief Complaint Chief complaint: Per Nursing staff: pt up walking around in hallway talking to herself, respirations even and unlabored no signs of distress The patient was seen today, she is lying down. She is uncooperative and ignores me when I'm trying to talk to her. The patient finally arouses after several attempts. She is more talkative today. Her speech is also a little clearer than yesterday, but her it is still nonsensical and her thought process is disorganized. She verbalizes hearing voices that "told me I was ." She then says "what's going on." The patient is smiling inappropriately. When asking the patient was she SI/HI, she just laughs. REVIEW OF SYSTEMS ROS cannot be reliably obtained from the patient due to her confusion MENTAL STATUS EXAMINATION General Appearance and Behavior: Age appropriate, covered up with linen, uncooperative with questioning. Cooperation: disengaged Psychomotor Behavior: Psychomotor agitation Mood: n/a Affect and affective range: smiling inappropriately Thought Process: responding to internal stimuli Thought Content: N/V Speech: nonsensical Intellectual Functioning: N/V Suicidal Ideation: n/a Homicidal Ideation: n/a Hallucinations: Auditory Impulse Control: Impaired Insight and Judgment: Impaired insight and judgment Memory: impaired Attention: Divided attention impaired Orientation: N/A Assessment and Plan (1) Schizophrenia Current Visit: Yes Status: Acute Treatment Plan Increased Olanzapine 7.5mg po daily, will d/c and start Latuda 20mg po daily if pharm can order it. Risks, benefits and alternatives of medications discussed with the patient, questions answered and consent obtained from patient. PSYCHOTHERAPY: Supportive psychotherapy provided MEDICAL: Per primary team DELIRIUM PRECAUTIONS: Please re-orient patient frequently, keep lights on during the day, and minimize benzodiazepines and opiates as these medications could worsen patient's confusion. FORK ASSEMBLER: per primary DISPOSITION: Recommend acute inpatient psychiatric hospitalization at this time. Case discussed with Dr. Squires who agrees with current disposition LEGAL STATUS: 1013 FOLLOW-UP: Will follow Thank you for the consult. Please contact with any questions and/or concerns. Mental Status Exam - Vital signs Last Vital Signs Temp 99.0 F 12/18/20 09:22 Pulse 77 12/18/20 09:22 Resp 18 04/28/21 09:22 BP 114/57 12/18/20 09:22 Pulse Ox 99 12/18/20 09:22
--- NOTE | 2020-12-18 11:51 | Event Note ---
Date: 12/18/20 S- when I asked how she is feeling today, patient states, "Meño loves you." O- vital signs are stable; patient is cooperative; speech is more coherent today A- COVID-19, Acute psychosis, history of schizophrenia, 13 weeks according to ultrasound obtained 12/07/2020 P- 1013; per RN, patient has been accepted to [facility]; awaiting transport time
[2020-12-18] MEDS: LATUDA PO SCH (12:06)
== END 2020-12-18 14:25 | disposition home or self-care (01) ==
LOC: EEVIPCON 10:53 → ED 10:53
DX: F25.9 Schizoaffective disorder, unspecified (principal)
CPT/HCPCS: 36415; 71045; 76801; 80048; 80164; 80307; 81001; 82728; 82962; 83615; 84145; 84702; 85025; 85379; 86140; 87040; 96360; 96372; 99285; J1200; J2060; J7030; 76805; 80320; G0480